=== PATIENT | male | born 1975 | race African-American/Black ===

== ENCOUNTER 2017-06-24 06:01 | Inpatient (IN) | payer SELFPAY ==
[~2017-06-24] VITALS: Ht 167.6 cm; Wt 111.1 kg
[2017-06-24 07:39] LABS: HEMATOCRIT. 47.3 % (42.0-52.0); MEAN CORPUSCULAR HEMOGLOBIN 27.1 pg (28.0-32.0); PLATELET 158 x1000/uL (130-400); RED BLOOD CELL COUNT 5.91 mill/uL (4.7-6.1); RED CELL DISTRIBUTION WIDTH 17.1 % (11.6-14.6)
[2017-06-24 07:48] LABS: INR 1.1
[2017-06-24 07:56] LABS: CARBON DIOXIDE 22 mEq/L (21-32); CHLORIDE 108 mEq/L (98-107); TROPONIN I 0.04 ng/mL (0.00-0.04)
[2017-06-24] MEDS ORDERED: ACETAMINOPHEN 500MG TABLET PO ONE (08:30)
[2017-06-24 08:53] LABS: PLATELET ESTIMATE NORMAL
[2017-06-24] MEDS ORDERED: MORPHINE SULFATE 4 MG/ML CPJ (NOT FOR IM USE) IV SCH (12:00)
[2017-06-24] MEDS ORDERED: BUPR300T52 PO (13:51)
[2017-06-24] MEDS ORDERED: OLAN20TA16 PO (13:53)
[2017-06-24] MEDS ORDERED: BUSP30TA2 PO (13:53)
[2017-06-24 14:12] VITALS: BP 133/79
[2017-06-24] MEDS ORDERED: MAGNESIUM/ALUMINUM HYDROXIDE/SIMETHICONE 30ML UDC PO PRN (14:30)
[2017-06-24] MEDS ORDERED: DIPHENHYDRAMINE 50MG/ML VIAL IV PRN (14:30)
[2017-06-24] MEDS ORDERED: ACETAMINOPHEN 325MG TABLET PO PRN (14:30)
[2017-06-24] MEDS ORDERED: CLONIDINE 0.1MG TABLET PO PRN (14:30)
[2017-06-24] MEDS ORDERED: ONDANSETRON HCL 4MG/2ML VIAL IV PRN (14:30)
[2017-06-24] MEDS ORDERED: MORPHINE SULFATE 4 MG/ML CPJ (NOT FOR IM USE) IV PRN (14:30)
[2017-06-24] MEDS ORDERED: IPRATROPIUM/ALBUTEROL 0.5-3(2.5)MG/3ML NEB INH PRN (14:30)
[2017-06-24] MEDS ORDERED: SODIUM CHLORIDE 0.9% 10ML VIAL ONE (14:37)
[2017-06-24] MEDS ORDERED: IOHEXOL-350 100 ML BOTTLE ONE (14:37)
[2017-06-24 15:42] LABS: T4 FREE 0.99 ng/dL (0.76-1.46)
[2017-06-24] MEDS: BUPROPION HCL 150MG TABLET XL 24HR PO SCH (15:44)
[2017-06-24 16:00] VITALS: BP 133/79
[2017-06-24 17:24] LABS: BG CARBOXYHEMOGLOBIN 1.5 % (0.5-1.5); BG DEOXYHEMOGLOBIN 6.3 % (0.0-5.0); BG FRACTION INSPIRED OXYGEN 21; BG HCO3 ACT 21.1 mmol/L (22.0-26.0); BG METHEMOGLOBIN 0.4 % (0.0-1.5); BG OXYGEN SATURATION 93.6 % (92.0-98.5); BG OXYHEMOGLOBIN 91.8 % (94.0-97.0); BG PCO2 32.1 mmHg (35.0-45.0); BG PH 7.435 (7.350-7.450); BG PO2 66.6 mmHg (75.0-100.0); BG SAMPLE SITE RIGHT RADIAL; BG TOTAL HEMOGLOBIN 17.4 g/dL (12.0-18.0); BG VENT MODE ROOM AIR
[2017-06-24 20:00] VITALS: BP 125/90
[2017-06-24 20:24] LABS: *AMPHETAMINES SCREEN URINE NEGATIVE (NEGATIVE); *BARBITURATES SCREEN URINE NEGATIVE (NEGATIVE); *BENZODIAZEPINES SCREEN URINE NEGATIVE (NEGATIVE); *COCAINE SCREEN URINE NEGATIVE (NEGATIVE); CANNABINOID URINE SCREEN NEGATIVE (NEGATIVE); METHADONE URINE SCREEN NEGATIVE (NEGATIVE); OPIATES URINE SCREEN PRESUMTIVE POSITIVE (NEGATIVE); PHENCYCLIDINE URINE SCREEN NEGATIVE (NEGATIVE)
[2017-06-24] MEDS: BUSPIRONE HCL 5MG TABLET PO SCH (20:44)
[2017-06-24] MEDS: OLANZAPINE 10MG TABLET ODT PO SCH (20:45)
[2017-06-24] MEDS: SODIUM CHLORIDE 0.9% INJ 3ML FLUSH IVF SCH (20:46)
[2017-06-24] MEDS: ENOXAPARIN 30MG/0.3ML SYR SUBCUT SCH (20:46)
[2017-06-25] VITALS: BP 128/88
[2017-06-25] MEDS ORDERED: IBUPROFEN 600MG TABLET PO PRN (02:00)
[2017-06-25 04:00] VITALS: BP 117/55
[2017-06-25] MEDS: MORPHINE SULFATE 4 MG/ML CPJ (NOT FOR IM USE) IV PRN ×4 (04:06→23:46)
[2017-06-25] MEDS: SODIUM CHLORIDE 0.9% INJ 3ML FLUSH IVF SCH ×3 (05:35→21:53)
[2017-06-25] MEDS ORDERED: FUROSEMIDE 40MG/4ML VIAL IVP NR (07:00)
[2017-06-25 07:41] LABS: TROPONIN I 0.02 ng/mL (0.00-0.04)
[2017-06-25 07:56] VITALS: BP 136/97
[2017-06-25] MEDS: OLANZAPINE 10MG TABLET ODT PO SCH ×2 (09:00→21:00)
[2017-06-25] MEDS: BUSPIRONE HCL 5MG TABLET PO SCH ×2 (09:00→21:42)
[2017-06-25] MEDS: BUPROPION HCL 150MG TABLET XL 24HR PO SCH (09:09)
[2017-06-25] MEDS: ENOXAPARIN 30MG/0.3ML SYR SUBCUT SCH ×2 (09:09→21:42)
[2017-06-25] MEDS: CEFTRIAXONE 1 G PREMIX 50 ML IV SCH (09:09)
[2017-06-25 12:00] VITALS: BP 100/63
[2017-06-25] MEDS: AZITHROMYCIN 500 MG in DEXT 5% WATER 250 ML IV SCH (12:38)
[2017-06-25 15:51] VITALS: BP 101/68
[2017-06-25 20:00] VITALS: BP 118/78
[2017-06-26] VITALS: BP 117/79
[2017-06-26 04:00] VITALS: BP 113/77
[2017-06-26] MEDS: SODIUM CHLORIDE 0.9% INJ 3ML FLUSH IVF SCH ×3 (05:47→21:02)
[2017-06-26] MEDS: MORPHINE SULFATE 4 MG/ML CPJ (NOT FOR IM USE) IV PRN (06:45)
[2017-06-26 08:00] VITALS: BP 104/66
[2017-06-26] MEDS: BUSPIRONE HCL 5MG TABLET PO SCH ×3 (08:16→21:02)
[2017-06-26] MEDS: BUPROPION HCL 150MG TABLET XL 24HR PO SCH (08:16)
[2017-06-26] MEDS: ENOXAPARIN 30MG/0.3ML SYR SUBCUT SCH ×2 (08:17→21:02)
[2017-06-26] MEDS: CEFTRIAXONE 1 G PREMIX 50 ML IV SCH (08:19)
[2017-06-26] MEDS ORDERED: ATENOLOL 50 MG TABLET PO SCH (09:00)
[2017-06-26] MEDS: AZITHROMYCIN 500 MG in DEXT 5% WATER 250 ML IV SCH (09:24)
[2017-06-26 12:00] VITALS: BP 121/82
[2017-06-26] MEDS: ATENOLOL 25MG TABLET PO SCH (12:08)
[2017-06-26] MEDS: TRAMADOL 50MG TABLET PO PRN ×2 (13:03→19:55)
[2017-06-26 16:00] VITALS: BP 92/54
[2017-06-26 20:03] VITALS: BP 100/59
[2017-06-26] MEDS: OLANZAPINE 10MG TABLET ODT PO SCH (21:02)
[2017-06-27] VITALS: BP 112/89
[2017-06-27 04:00] VITALS: BP 112/80
[2017-06-27] MEDS: SODIUM CHLORIDE 0.9% INJ 3ML FLUSH IVF SCH ×3 (05:00→20:41)
[2017-06-27] MEDS: ATENOLOL 25MG TABLET PO SCH (09:00)
[2017-06-27] MEDS: BUSPIRONE HCL 5MG TABLET PO SCH ×2 (09:00→21:00)
[2017-06-27] MEDS ORDERED: ATENOLOL 25MG TABLET PO SCH (09:00)
[2017-06-27] MEDS: CEFTRIAXONE 1 G PREMIX 50 ML IV SCH (09:27)
[2017-06-27] MEDS: AZITHROMYCIN 500 MG in DEXT 5% WATER 250 ML IV SCH (09:27)
[2017-06-27] MEDS: BUPROPION HCL 150MG TABLET XL 24HR PO SCH (09:27)
[2017-06-27] MEDS: ENOXAPARIN 30MG/0.3ML SYR SUBCUT SCH ×2 (09:29→20:39)
[2017-06-27] MEDS: TRAMADOL 50MG TABLET PO PRN ×2 (09:42→18:39)
[2017-06-27 12:00] VITALS: BP 101/76
[2017-06-27] MEDS: SPIRONOLACTONE 25MG TABLET PO SCH (13:26)
[2017-06-27] MEDS: FUROSEMIDE 40MG/4ML VIAL IVP SCH (13:26)
[2017-06-27] MEDS ORDERED: CARVEDILOL 3.125 MG TABLET PO NR (13:56)
[2017-06-27 16:00] VITALS: BP 103/79
[2017-06-27 20:00] VITALS: BP 100/58
[2017-06-27] MEDS: OLANZAPINE 10MG TABLET ODT PO SCH (20:39)
[2017-06-27] MEDS: ATORVASTATIN CALCIUM 40MG TABLET PO SCH (20:41)
[2017-06-27] MEDS: CARVEDILOL 3.125 MG TABLET PO SCH (21:00)
[2017-06-28] VITALS: BP 126/63
[2017-06-28] MEDS: TRAMADOL 50MG TABLET PO PRN ×3 (00:24→19:24)
[2017-06-28 04:00] VITALS: BP 105/66
[2017-06-28] MEDS: SODIUM CHLORIDE 0.9% INJ 3ML FLUSH IVF SCH ×3 (05:31→20:24)
[2017-06-28 07:28] LABS: CARBON DIOXIDE 22 mEq/L (21-32); CHLORIDE 103 mEq/L (98-107)
[2017-06-28 08:00] VITALS: BP 114/83
[2017-06-28] MEDS: SPIRONOLACTONE 25MG TABLET PO SCH (08:24)
[2017-06-28] MEDS: BUPROPION HCL 150MG TABLET XL 24HR PO SCH (08:24)
[2017-06-28] MEDS: CARVEDILOL 3.125 MG TABLET PO SCH (08:25)
[2017-06-28] MEDS: FUROSEMIDE 40MG/4ML VIAL IVP SCH (08:25)
[2017-06-28] MEDS: ENOXAPARIN 30MG/0.3ML SYR SUBCUT SCH ×2 (08:26→20:24)
[2017-06-28] MEDS: BUSPIRONE HCL 5MG TABLET PO SCH ×2 (09:36→21:00)
[2017-06-28 12:00] VITALS: BP 112/78
[2017-06-28] MEDS: LISINOPRIL 2.5MG TABLET PO SCH (15:26)
[2017-06-28 15:27] VITALS: BP 121/88
[2017-06-28 20:00] VITALS: BP 106/66
[2017-06-28] MEDS: ATORVASTATIN CALCIUM 40MG TABLET PO SCH (20:22)
[2017-06-28] MEDS: CARVEDILOL 6.25 MG TABLET PO SCH (20:23)
[2017-06-28] MEDS: OLANZAPINE 10MG TABLET ODT PO SCH (20:23)
[2017-06-29] VITALS: BP 103/65
[2017-06-29 04:00] VITALS: BP 102/69
[2017-06-29] MEDS: SODIUM CHLORIDE 0.9% INJ 3ML FLUSH IVF SCH (05:50)
[2017-06-29] MEDS: TRAMADOL 50MG TABLET PO PRN (05:51)
[2017-06-29 06:58] LABS: HEMATOCRIT 49.6 % (42.0-52.0); HEMOGLOBIN 16.6 g/dL (14.0-18.0); MEAN CORPUSCULAR HEMOGLOBIN 27.3 pg (28.0-32.0); MEAN CORPUSCULAR VOLUME 81.5 fL (80.0-94.0); PLATELET 191 x1000/uL (130-400); RED BLOOD CELL COUNT 6.09 mill/uL (4.7-6.1); RED CELL DISTRIBUTION WIDTH 17.3 % (11.6-14.6)
[2017-06-29 07:40] VITALS: BP 120/83
[2017-06-29] MEDS: FUROSEMIDE 40MG/4ML VIAL IVP SCH (08:46)
[2017-06-29] MEDS: ENOXAPARIN 30MG/0.3ML SYR SUBCUT SCH (08:47)
[2017-06-29] MEDS: LISINOPRIL 2.5MG TABLET PO SCH (08:47)
[2017-06-29] MEDS: BUPROPION HCL 150MG TABLET XL 24HR PO SCH (08:47)
[2017-06-29] MEDS: SPIRONOLACTONE 25MG TABLET PO SCH (08:47)
[2017-06-29] MEDS: BUSPIRONE HCL 5MG TABLET PO SCH (08:48)
[2017-06-29] MEDS: CARVEDILOL 6.25 MG TABLET PO SCH (08:48)
[2017-06-29] MEDS ORDERED: LORAZEPAM 2MG/ML CPJ IV NR (10:45)
[2017-06-29 11:59] VITALS: BP 121/79
[2017-06-29 13:29] VITALS: BP 121/79
[2017-06-29] MEDS ORDERED: CARVEDILOL 6.25 MG TABLET PO SCH (21:00)
[2017-06-29] MEDS ORDERED: CARVEDILOL 25MG TABLET PO SCH (21:00)
[2017-06-30] MEDS ORDERED: LISINOPRIL 2.5MG TABLET PO SCH (09:00)
== END 2017-06-29 14:40 | disposition home or self-care (01) | DRG 194 ==
LOC: ER 06:01 → 8WST 09:38 → ENRESERV 11:35
PROVIDERS: ADMIT Internal Medicine; ATTEND Internal Medicine
DX: I11.0 Hypertensive heart disease with heart failure (principal); E78.5 Hyperlipidemia, unspecified; E66.9 Obesity, unspecified; F17.210 Nicotine dependence, cigarettes, uncomplicated; I50.9 Heart failure, unspecified; E78.00 Pure hypercholesterolemia, unspecified; F99 Mental disorder, not otherwise specified; Z79.899 Other long term (current) drug therapy; Z82.49 Family history of ischemic heart disease and other diseases of the circulatory system; Z91.14 Patient's other noncompliance with medication regimen; Z68.39 Body mass index [BMI] 39.0-39.9, adult; Z71.6 Tobacco abuse counseling
CPT/HCPCS: 36415; 36600; 71010; 71275; 80048; 80053; 80061; 80305; 82375; 82805; 83735; 83880; 84439; 84443; 84484; 85025; 85027; 85610; 93005; 93306; 93970; 99285; A4216; J0456; J0696; J1200; J1650; J1940; J2270; J2405; J7040; J7060; Q9967

== ENCOUNTER 2017-12-11 06:41 | Inpatient (IN) | payer SELFPAY ==
[~2017-12-11] VITALS: Ht 170.2 cm; Wt 109.5 kg
[~2017-12-11 06:41] MED LIST: BUPR300T52 PO; BUSP30TA2 PO; OLAN20TA16 PO
[2017-12-11 08:23] LABS: BASOPHILS % 0.7 % (0.0-2.0); EOSINOPHILS % 0.7 % (0.0-5.0); HEMOGLOBIN. 16.6 g/dL (14.0-18.0); LYMPHOCYTES % 14.8 % (20.0-50.0); MEAN CORPUSCULAR VOLUME 82.6 fL (80.0-94.0); MEAN PLATELET VOLUME 9.7 fl (7.4-10.4); MONOCYTES % 7.9 % (2.0-8.0); NEUTROPHILS % 75.9 % (40.0-76.0); RED BLOOD CELL COUNT 5.93 mill/uL (4.7-6.1); RED CELL DISTRIBUTION WIDTH 15.5 % (11.6-14.6)
[2017-12-11 08:31] LABS: CHLORIDE 111 mEq/L (98-107)
[2017-12-11 08:52] LABS: INR 1.1; PROTHROMBIN TIME 11.1 sec (9.4-11.6)
[2017-12-11 09:03] LABS: PLATELET 168 x1000/uL (130-400)
[2017-12-11] MEDS ORDERED: ASPIRIN 81MG TABLET PO ONE (11:00)
[2017-12-11] MEDS: ALBUTEROL (0.083%) 2.5MG/3ML NEB HHN SCH ×3 (11:00→13:06)
[2017-12-11] MEDS ORDERED: PREDNISONE 20MG TABLET PO STA (11:50)
[2017-12-11] MEDS ORDERED: IPRATROPIUM BROMIDE (0.02%) 0.5MG/2.5ML NEB HHN STA (11:50)
[2017-12-11] MEDS ORDERED: CEFTRIAXONE 1 G PREMIX 50 ML IV SCH (12:00)
[2017-12-11] MEDS ORDERED: AZITHROMYCIN 500 MG in SODIUM CHLORIDE 0.9% 250 ML IV ONE (12:00)
[2017-12-11] MEDS ORDERED: SODIUM CHLORIDE 0.9% 1,000 ML IV ONE (13:37)
[2017-12-11] MEDS ORDERED: ONDANSETRON HCL 4MG/2ML VIAL IV PRN (13:45)
[2017-12-11] MEDS ORDERED: IPRATROPIUM/ALBUTEROL 0.5-3(2.5)MG/3ML NEB INH PRN (13:45)
[2017-12-11] MEDS ORDERED: DOCUSATE SODIUM 100MG CAPSULE PO PRN (13:45)
[2017-12-11] MEDS ORDERED: GUAIFENESIN 200MG/10ML SUGAR FREE UDC PO PRN (13:45)
[2017-12-11] MEDS ORDERED: LORAZEPAM 0.5MG TABLET PO PRN (13:45)
[2017-12-11] MEDS ORDERED: MAGNESIUM/ALUMINUM HYDROXIDE/SIMETHICONE 30ML UDC PO PRN (13:45)
[2017-12-11] MEDS ORDERED: ACETAMINOPHEN 325MG TABLET PO PRN (13:45)
[2017-12-11] MEDS ORDERED: NA PHOS,M-B/NA PHOS,DI-BA ENEMA 118ML PR PRN (13:45)
[2017-12-11] MEDS ORDERED: CLONIDINE 0.1MG TABLET PO PRN (13:45)
[2017-12-11] MEDS ORDERED: MORPHINE SULFATE 4 MG/ML CPJ (NOT FOR IM USE) IV ONE (14:00)
[2017-12-11] MEDS ORDERED: IOHEXOL-350 100 ML BOTTLE ONE (15:31)
[2017-12-11 15:59] LABS: CHLORIDE 112 mEq/L (98-107)
[2017-12-11] MEDS ORDERED: ENOXAPARIN 40MG/0.4ML SYR SUBCUT ONE (17:45)
[2017-12-11] MEDS ORDERED: ENOXAPARIN 40MG/0.4ML SYR SUBCUT SCH (18:00)
[2017-12-11] MEDS: METHYLPREDNISOLONE SOD SUCC 125 MG/2 ML VIAL IV SCH (18:00)
[2017-12-11 19:03] LABS: BG BASE EXCESS -3.3 mmol/L (-2.0-2.0); BG CARBOXYHEMOGLOBIN 0.7 % (0.5-1.5); BG DEOXYHEMOGLOBIN 5.1 % (0.0-5.0); BG FRACTION INSPIRED OXYGEN 28; BG METHEMOGLOBIN 0.1 % (0.0-1.5); BG OXYGEN SATURATION 94.9 % (92.0-98.5); BG OXYHEMOGLOBIN 94.1 % (94.0-97.0); BG PCO2 32.1 mmHg (35.0-45.0); BG PH 7.413 (7.350-7.450); BG PO2 75.6 mmHg (75.0-100.0); BG SAMPLE SITE RIGHT BRACHIAL; BG TOTAL HEMOGLOBIN 16.9 g/dL (12.0-18.0); BG VENT MODE NASAL CANNULA
[2017-12-11] MEDS: FUROSEMIDE 40MG/4ML VIAL IVP SCH (19:48)
[2017-12-11] MEDS: ENOXAPARIN 30MG/0.3ML SYR SUBCUT SCH (19:49)
[2017-12-11 20:00] VITALS: BP 116/76
[2017-12-11] MEDS ORDERED: LEVOFLOXACIN 500MG PREMIX 100 ML IV SCH (20:00)
[2017-12-11] MEDS: MORPHINE SULFATE 4 MG/ML CPJ (NOT FOR IM USE) IV PRN (20:55)
[2017-12-11] MEDS: LEVOFLOXACIN 500MG PREMIX 100 ML IV SCH (21:48)
[2017-12-11] MEDS: CARVEDILOL 3.125 MG TABLET PO SCH (22:39)
[2017-12-12] VITALS: BP 119/75
[2017-12-12] MEDS: METHYLPREDNISOLONE SOD SUCC 125 MG/2 ML VIAL IV SCH ×3 (02:00→18:53)
[2017-12-12] MEDS: MORPHINE SULFATE 4 MG/ML CPJ (NOT FOR IM USE) IV PRN ×4 (02:05→20:24)
[2017-12-12 04:00] VITALS: BP 115/69
[2017-12-12] MEDS: FUROSEMIDE 40MG/4ML VIAL IVP SCH ×2 (07:01→17:21)
[2017-12-12] MEDS: ENOXAPARIN 30MG/0.3ML SYR SUBCUT SCH ×2 (07:02→18:54)
[2017-12-12 07:07] LABS: HEMATOCRIT. 47.6 % (42.0-52.0); HEMOGLOBIN. 16.2 g/dL (14.0-18.0); MEAN CORPUSCULAR HEMOGLOBIN 28.2 pg (28.0-32.0); MEAN CORPUSCULAR VOLUME 82.7 fL (80.0-94.0); RED BLOOD CELL COUNT 5.75 mill/uL (4.7-6.1); RED CELL DISTRIBUTION WIDTH 15.9 % (11.6-14.6)
[2017-12-12 07:26] LABS: CHLORIDE 105 mEq/L (98-107)
[2017-12-12 07:37] LABS: HDL CHOLESTEROL 44 mg/dL (40-59); LDL CHOLESTEROL 94 mg/dL (5-100); T4 FREE 0.88 ng/dL (0.76-1.46)
[2017-12-12 08:00] VITALS: BP 124/71
[2017-12-12] MEDS: BUPROPION HCL 150MG TABLET XL 24HR PO SCH (08:55)
[2017-12-12] MEDS: ASPIRIN 81MG EC TABLET PO SCH (08:55)
[2017-12-12] MEDS: CARVEDILOL 3.125 MG TABLET PO SCH ×2 (08:55→20:25)
[2017-12-12] MEDS: BUSPIRONE HCL 10MG TABLET PO SCH ×2 (08:55→17:10)
[2017-12-12] MEDS ORDERED: MEDICATION NOT ON FORMULARY EA (Bupropion Hcl (Wellbutrin Xl) 1 TAB) PO SCH (09:00)
[2017-12-12] MEDS ORDERED: BUSPIRONE HCL PO SCH (09:00)
[2017-12-12 10:16] LABS: *AMPHETAMINES SCREEN URINE NEGATIVE (NEGATIVE); *BARBITURATES SCREEN URINE NEGATIVE (NEGATIVE); *BENZODIAZEPINES SCREEN URINE NEGATIVE (NEGATIVE); *COCAINE SCREEN URINE NEGATIVE (NEGATIVE); CANNABINOID URINE SCREEN NEGATIVE (NEGATIVE); METHADONE URINE SCREEN NEGATIVE (NEGATIVE); OPIATES URINE SCREEN NEGATIVE (NEGATIVE); PHENCYCLIDINE URINE SCREEN NEGATIVE (NEGATIVE)
[2017-12-12] MEDS: HYDROCODONE/ACETAMINOPHEN 5/325MG TABLET PO PRN ×2 (11:03→15:56)
[2017-12-12 11:23] LABS: MEAN PLATELET VOLUME 10.6 fl (7.4-10.4); PLATELET 181 x1000/uL (130-400)
[2017-12-12 12:00] VITALS: BP 113/64
[2017-12-12] MEDS ORDERED: PNEUMOCOCCAL 23-VAL P-SAC VAC 0.5 ML IM ONE (12:00)
[2017-12-12] MEDS ORDERED: AZITHROMYCIN 500 MG in SODIUM CHLORIDE 0.9% 250 ML IV SCH (12:00)
[2017-12-12] MEDS ORDERED: CEFTRIAXONE 1 G PREMIX 50 ML IV SCH (13:00)
[2017-12-12 16:00] VITALS: BP 125/85
[2017-12-12] MEDS ORDERED: OLANZAPINE 10MG TABLET PO SCH (17:00)
[2017-12-12] MEDS ORDERED: MEDICATION NOT ON FORMULARY EA (Olanzapine 1 TAB) PO SCH (17:00)
[2017-12-12] MEDS ORDERED: FLUO20CA33 PO (17:45)
[2017-12-12 20:00] VITALS: BP 103/71
[2017-12-12] MEDS: LEVOFLOXACIN 500MG PREMIX 100 ML IV SCH (20:25)
[2017-12-13] VITALS: BP 114/71
[2017-12-13] MEDS: METHYLPREDNISOLONE SOD SUCC 125 MG/2 ML VIAL IV SCH ×2 (02:18→10:26)
[2017-12-13 04:00] VITALS: BP 122/65
[2017-12-13] MEDS: ENOXAPARIN 30MG/0.3ML SYR SUBCUT SCH (06:00)
[2017-12-13] MEDS: FUROSEMIDE 40MG/4ML VIAL IVP SCH (06:01)
[2017-12-13] MEDS: MORPHINE SULFATE 4 MG/ML CPJ (NOT FOR IM USE) IV PRN (07:46)
[2017-12-13 07:59] LABS: HEMATOCRIT. 52.2 % (42.0-52.0); HEMOGLOBIN. 17.3 g/dL (14.0-18.0); MEAN CORPUSCULAR HEMOGLOBIN 27.5 pg (28.0-32.0); MEAN PLATELET VOLUME 10.6 fl (7.4-10.4); PLATELET 204 x1000/uL (130-400); RED BLOOD CELL COUNT 6.29 mill/uL (4.7-6.1)
[2017-12-13 08:00] VITALS: BP 116/78
[2017-12-13 08:20] LABS: CHLORIDE 103 mEq/L (98-107)
[2017-12-13] MEDS: BUSPIRONE HCL 10MG TABLET PO SCH (08:41)
[2017-12-13] MEDS: CARVEDILOL 3.125 MG TABLET PO SCH (08:41)
[2017-12-13] MEDS: ASPIRIN 81MG EC TABLET PO SCH (08:41)
[2017-12-13] MEDS: BUPROPION HCL 150MG TABLET XL 24HR PO SCH (08:41)
[2017-12-13 10:45] VITALS: BP 116/78
[2017-12-13 13:01] LABS: PLATELET ESTIMATE NORMAL
== END 2017-12-13 11:35 | disposition home or self-care (01) | DRG 133 ==
LOC: ER 06:41 → 7WST 13:43 → ENRESERV 16:17
PROVIDERS: ADMIT Internal Medicine; ATTEND Internal Medicine
DX: J96.00 Acute respiratory failure, unspecified whether with hypoxia or hypercapnia (principal); I50.23 Acute on chronic systolic (congestive) heart failure; J18.9 Pneumonia, unspecified organism; I42.9 Cardiomyopathy, unspecified; R65.10 Systemic inflammatory response syndrome (SIRS) of non-infectious origin without acute organ dysfunction; I11.0 Hypertensive heart disease with heart failure; J44.0 Chronic obstructive pulmonary disease with (acute) lower respiratory infection; E87.5 Hyperkalemia; D64.9 Anemia, unspecified; F32.9 Major depressive disorder, single episode, unspecified; F12.90 Cannabis use, unspecified, uncomplicated; F17.210 Nicotine dependence, cigarettes, uncomplicated; I34.0 Nonrheumatic mitral (valve) insufficiency; Z79.899 Other long term (current) drug therapy; Z82.3 Family history of stroke
CPT/HCPCS: 36415; 36600; 71045; 71275; 80048; 80053; 80061; 80305; 82375; 82805; 83605; 83735; 83880; 84439; 84443; 84484; 85025; 85610; 87804; 93005; 93306; 94640; 96361; 96365; 96367; 96375; 99285; J0456; J0696; J1650; J1940; J1956; J2270; J2930; J7040; J7050; J7060; J7512; J7611; Q9967

== ENCOUNTER 2018-01-01 22:29 | Inpatient (IN) | payer SELFPAY ==
[~2018-01-01] VITALS: Ht 172.7 cm; Wt 107.5 kg
[~2018-01-01 22:29] MED LIST changes: +FLUO20CA33 PO
[2018-01-01] MEDS ORDERED: ASPIRIN 81MG TABLET PO ONE (23:45)
[2018-01-02 00:13] LABS: BASOPHILS % 0.6 % (0.0-2.0); EOSINOPHILS % 0.7 % (0.0-5.0); HEMATOCRIT. 45.5 % (42.0-52.0); HEMOGLOBIN. 15.5 g/dL (14.0-18.0); LYMPHOCYTES % 14.6 % (20.0-50.0); MEAN CORPUSCULAR VOLUME 81.9 fL (80.0-94.0); MONOCYTES % 6.1 % (2.0-8.0); RED BLOOD CELL COUNT 5.55 mill/uL (4.7-6.1); RED CELL DISTRIBUTION WIDTH 16.2 % (11.6-14.6)
[2018-01-02 00:20] LABS: CHLORIDE 109 mEq/L (98-107)
[2018-01-02 00:23] LABS: INR 1.1; PARTIAL THROMBOPLASTIN TIME 25.9 sec (23.4-31.0); PROTHROMBIN TIME 11.7 sec (9.4-11.6)
[2018-01-02 00:33] LABS: MEAN PLATELET VOLUME 9.8 fl (7.4-10.4); PLATELET 174 x1000/uL (130-400)
[2018-01-02] MEDS ORDERED: KETOROLAC 30MG/ML VIAL IV ONE (00:45)
[2018-01-02] MEDS ORDERED: FUROSEMIDE 40MG/4ML VIAL IVP NR (02:15)
[2018-01-02] MEDS ORDERED: MORPHINE SULFATE 4 MG/ML CPJ (NOT FOR IM USE) IV ONE (02:15)
[2018-01-02 02:19] LABS: CLARITY URINE CLEAR (CLEAR); COLOR URINE YELLOW (YELLOW); KETONES URINE NEGATIVE (NEGATIVE); LEUKOCYTE ESTERASE URINE NEGATIVE (NEGATIVE); NITRITE URINE NEGATIVE (NEGATIVE); OCCULT BLOOD URINE NEGATIVE (NEGATIVE); PROTEIN URINE TRACE (NEGATIVE); UROBILINOGEN URINE 0.2 E.U./dL (0.2-1.0)
[2018-01-02 06:18] VITALS: BP 119/79
[2018-01-02] MEDS ORDERED: IPRATROPIUM/ALBUTEROL 0.5-3(2.5)MG/3ML NEB INH PRN (07:30)
[2018-01-02] MEDS ORDERED: GUAIFENESIN 200MG/10ML SUGAR FREE UDC PO PRN (07:30)
[2018-01-02] MEDS ORDERED: ENOXAPARIN 40MG/0.4ML SYR SUBCUT SCH (07:30)
[2018-01-02] MEDS ORDERED: ONDANSETRON HCL 4MG/2ML VIAL IV PRN (07:30)
[2018-01-02] MEDS ORDERED: CLONIDINE 0.1MG TABLET PO PRN (07:30)
[2018-01-02] MEDS ORDERED: MAGNESIUM/ALUMINUM HYDROXIDE/SIMETHICONE 30ML UDC PO PRN (07:30)
[2018-01-02] MEDS ORDERED: LORAZEPAM 0.5MG TABLET PO PRN (07:30)
[2018-01-02] MEDS ORDERED: ACETAMINOPHEN 325MG TABLET PO PRN (07:30)
[2018-01-02] MEDS ORDERED: NITROGLYCERIN 0.4MG TABLET SL SL PRN (07:30)
[2018-01-02 08:00] VITALS: BP 114/83
[2018-01-02 08:52] VITALS: BP 114/83
[2018-01-02] MEDS ORDERED: NA PHOS,M-B/NA PHOS,DI-BA ENEMA 118ML PR PRN (09:00)
[2018-01-02] MEDS ORDERED: DOCUSATE SODIUM 100MG CAPSULE PO PRN (09:00)
[2018-01-02] MEDS: ENOXAPARIN 30MG/0.3ML SYR SUBCUT SCH ×2 (09:26→21:52)
[2018-01-02] MEDS: ASPIRIN 325MG EC TABLET PO SCH (09:26)
[2018-01-02] MEDS: FUROSEMIDE 40MG/4ML VIAL IV SCH ×2 (09:27→21:47)
[2018-01-02] MEDS: KETOROLAC 15MG/ML VIAL IV PRN ×3 (09:28→22:31)
[2018-01-02 11:23] LABS: *AMPHETAMINES SCREEN URINE NEGATIVE (NEGATIVE); *BARBITURATES SCREEN URINE NEGATIVE (NEGATIVE); *BENZODIAZEPINES SCREEN URINE NEGATIVE (NEGATIVE); *COCAINE SCREEN URINE NEGATIVE (NEGATIVE); METHADONE URINE SCREEN NEGATIVE (NEGATIVE); OPIATES URINE SCREEN NEGATIVE (NEGATIVE)
[2018-01-02 11:24] LABS: CANNABINOID URINE SCREEN NEGATIVE (NEGATIVE); PHENCYCLIDINE URINE SCREEN NEGATIVE (NEGATIVE)
[2018-01-02 12:00] VITALS: BP 104/63
[2018-01-02 16:00] VITALS: BP 116/68
[2018-01-02 16:10] LABS: CREATINE KINASE 326 IU/L (39-308)
[2018-01-02 16:11] LABS: CREATINE KINASE MB FRACTION 1.1 ng/mL (0.5-3.6)
[2018-01-02] MEDS: SPIRONOLACTONE 25MG TABLET PO SCH (16:34)
[2018-01-02 20:00] VITALS: BP 107/67
[2018-01-02] MEDS ORDERED: ATORVASTATIN CALCIUM 20MG TABLET PO SCH (21:00)
[2018-01-02] MEDS ORDERED: ZOLPIDEM TARTRATE 5MG TABLET PO PRN (21:00)
[2018-01-03] VITALS: BP 107/63
[2018-01-03 00:09] LABS: CREATINE KINASE 270 IU/L (39-308)
[2018-01-03 00:11] LABS: CREATINE KINASE MB FRACTION 1.1 ng/mL (0.5-3.6)
[2018-01-03 04:00] VITALS: BP 104/66
[2018-01-03] MEDS: SPIRONOLACTONE 25MG TABLET PO SCH (06:47)
[2018-01-03 08:00] VITALS: BP 103/53
[2018-01-03] MEDS: FUROSEMIDE 40MG/4ML VIAL IV SCH (08:50)
[2018-01-03] MEDS: ASPIRIN 325MG EC TABLET PO SCH (08:50)
[2018-01-03] MEDS: ENOXAPARIN 30MG/0.3ML SYR SUBCUT SCH (08:50)
[2018-01-03 12:00] VITALS: BP 129/84
[2018-01-03 12:10] VITALS: BP 129/84
== END 2018-01-03 14:10 | disposition home or self-care (01) | DRG 194 ==
LOC: ER 22:29 → 6WST 01-02 03:18 → EDBEDREQTM 01-02 03:20 → EDBEDREQ 01-02 03:20 → ENRESERV 01-02 04:34
PROVIDERS: ADMIT Internal Medicine; ATTEND Internal Medicine
DX: I11.0 Hypertensive heart disease with heart failure (principal); E66.9 Obesity, unspecified; I50.40 Unspecified combined systolic (congestive) and diastolic (congestive) heart failure; Z87.891 Personal history of nicotine dependence; Z91.14 Patient's other noncompliance with medication regimen; Z68.36 Body mass index [BMI] 36.0-36.9, adult
CPT/HCPCS: 36415; 71045; 80053; 80061; 80305; 81003; 82550; 82553; 83036; 83605; 83880; 84484; 85025; 85610; 85730; 87040; 87086; 87804; 93005; 96374; 96375; 99285; J1650; J1885; J1940; J2270

== ENCOUNTER 2018-07-05 15:13 | Inpatient (IN) | payer SELFPAY ==
[~2018-07-05] VITALS: Ht 170.2 cm; Wt 113.4 kg
[2018-07-05] MEDS ORDERED: FUROSEMIDE 40MG/4ML VIAL IV ONE (16:45)
[2018-07-05] MEDS ORDERED: MORPHINE SULFATE 4 MG/ML CPJ (NOT FOR IM USE) IV STA (16:52)
[2018-07-05] MEDS ORDERED: ONDANSETRON HCL 4MG/2ML INJ IV STA (16:52)
[2018-07-05 17:27] LABS: HEMATOCRIT. 52.1 % (42.0-52.0); HEMOGLOBIN. 17.5 g/dL (14.0-18.0); MEAN CORPUSCULAR HEMOGLOBIN 29.2 pg (28.0-32.0); RED BLOOD CELL COUNT 5.99 mill/uL (4.7-6.1); RED CELL DISTRIBUTION WIDTH 14.3 % (11.6-14.6)
[2018-07-05] MEDS ORDERED: ACETAMINOPHEN 325MG TABLET PO NR (17:45)
[2018-07-05 17:46] LABS: MEAN PLATELET VOLUME 10.7 fl (7.4-10.4); PLATELET 193 x1000/uL (130-400)
[2018-07-05 17:48] LABS: PLATELET ESTIMATE NORMAL
[2018-07-05 17:55] LABS: CHLORIDE 103 mEq/L (98-107)
[2018-07-05 22:15] VITALS: BP 138/87
[2018-07-05 22:20] VITALS: BP 138/87
[2018-07-05] MEDS ORDERED: BUSPIRONE HCL PO SCH (22:45)
[2018-07-05] MEDS ORDERED: MEDICATION NOT ON FORMULARY EA (Losartan Potassium (Cozaar) 25 MG) PO SCH (22:45)
[2018-07-05] MEDS ORDERED: SPIR25TA PO (22:48)
[2018-07-05] MEDS ORDERED: ATOR20TA PO (22:48)
[2018-07-05] MEDS ORDERED: COR25 PO (22:48)
[2018-07-05] MEDS ORDERED: LOSA25TA3 PO (22:48)
[2018-07-05] MEDS ORDERED: FURO-151 PO (22:48)
[2018-07-05] MEDS ORDERED: CLONIDINE 0.1MG TABLET PO PRN (23:45)
[2018-07-05] MEDS ORDERED: IPRATROPIUM/ALBUTEROL 0.5-3(2.5)MG/3ML NEB HHN PRN (23:45)
[2018-07-05] MEDS ORDERED: HYDROCODONE/ACETAMINOPHEN 5/325MG TABLET PO PRN (23:45)
[2018-07-05] MEDS ORDERED: DOCUSATE SODIUM 100MG CAPSULE PO PRN (23:45)
[2018-07-05] MEDS ORDERED: ACETAMINOPHEN 325MG TABLET PO PRN (23:45)
[2018-07-05] MEDS ORDERED: GUAIFENESIN 200MG/10ML SUGAR FREE UDC PO PRN ×2 (23:45)
[2018-07-05] MEDS ORDERED: ONDANSETRON HCL 4MG/2ML INJ IV PRN (23:45)
[2018-07-06] VITALS (7 sets, daily range): BP systolic 84–128; BP diastolic 53–83
[2018-07-06] MEDS ORDERED: OLANZAPINE 10MG TABLET PO SCH
[2018-07-06] MEDS: BUSPIRONE HCL 10MG TABLET PO SCH ×3 (00:05→21:40)
[2018-07-06] MEDS: HYDROCODONE/ACETAMINOPHEN 5/325MG TABLET PO PRN (00:08)
[2018-07-06] MEDS: IPRATROPIUM/ALBUTEROL 0.5-3(2.5)MG/3ML NEB HHN SCH ×3 (02:03→20:04)
[2018-07-06 07:33] LABS: HEMATOCRIT. 50.7 % (42.0-52.0); MEAN CORPUSCULAR HEMOGLOBIN 29.1 pg (28.0-32.0); RED BLOOD CELL COUNT 5.83 mill/uL (4.7-6.1); RED CELL DISTRIBUTION WIDTH 14.3 % (11.6-14.6)
[2018-07-06 07:52] LABS: CHLORIDE 102 mEq/L (98-107)
[2018-07-06 07:59] LABS: LDL CHOLESTEROL 137 mg/dL (5-100)
[2018-07-06 08:00] LABS: CREATINE KINASE 178 IU/L (39-308); HDL CHOLESTEROL 35 mg/dL (40-59)
[2018-07-06 08:03] LABS: CREATINE KINASE MB FRACTION < 1.0 ng/mL (0.5-3.6)
[2018-07-06] MEDS ORDERED: MEDICATION NOT ON FORMULARY EA (Furosemide (Lasix) 40 MG) PO SCH (09:00)
[2018-07-06] MEDS ORDERED: MEDICATION NOT ON FORMULARY EA (Bupropion Hcl (Wellbutrin Xl) 1 TAB) PO SCH (09:00)
[2018-07-06] MEDS ORDERED: SPIRONOLACTONE 25 MG PO SCH (09:00)
[2018-07-06] MEDS: AMLODIPINE 10MG TABLET PO SCH (09:50)
[2018-07-06] MEDS: BUPROPION HCL 150MG TABLET XL 24HR PO SCH ×2 (09:50)
[2018-07-06] MEDS: FUROSEMIDE 40MG TABLET PO SCH (09:51)
[2018-07-06] MEDS: SPIRONOLACTONE 25MG TABLET PO SCH (09:51)
[2018-07-06] MEDS: CARVEDILOL 12.5MG TABLET PO SCH ×2 (09:51→21:40)
[2018-07-06] MEDS: LOSARTAN POTASSIUM 25 MG TABLET PO SCH ×2 (09:51)
[2018-07-06] MEDS: ASPIRIN 81MG EC TABLET PO SCH (09:51)
[2018-07-06] MEDS ORDERED: BUPROPION HCL 150MG TABLET XL 24HR PO SCH (10:30)
[2018-07-06] MEDS: FLUOXETINE HCL 20MG CAPSULE PO SCH (12:01)
[2018-07-06] MEDS: OLANZAPINE 10MG TABLET PO SCH (12:02)
[2018-07-06 13:49] LABS: PLATELET ESTIMATE NORMAL
[2018-07-06 13:50] LABS: MEAN PLATELET VOLUME 10.7 fl (7.4-10.4); PLATELET 192 x1000/uL (130-400)
[2018-07-06] MEDS: MIDODRINE HCL 2.5MG TABLET PO SCH ×2 (16:25→17:12)
[2018-07-06] MEDS ORDERED: MEDICATION NOT ON FORMULARY EA (Olanzapine 1 TAB) PO SCH (17:00)
[2018-07-06] MEDS ORDERED: ATORVASTATIN CALCIUM 20MG TABLET PO SCH (21:00)
[2018-07-06 21:42] LABS: CREATINE KINASE 132 IU/L (39-308)
[2018-07-06 21:43] LABS: CREATINE KINASE MB FRACTION < 1.0 ng/mL (0.5-3.6)
[2018-07-07] VITALS: BP 118/66
[2018-07-07] MEDS: IPRATROPIUM/ALBUTEROL 0.5-3(2.5)MG/3ML NEB HHN SCH ×3 (02:03→15:29)
[2018-07-07 04:00] VITALS: BP 110/70
[2018-07-07] MEDS: HYDROCODONE/ACETAMINOPHEN 5/325MG TABLET PO PRN (05:44)
[2018-07-07 08:00] VITALS: BP 118/83
[2018-07-07] MEDS: OLANZAPINE 10MG TABLET PO SCH (08:52)
[2018-07-07] MEDS: BUPROPION HCL 150MG TABLET XL 24HR PO SCH (08:53)
[2018-07-07] MEDS: MIDODRINE HCL 2.5MG TABLET PO SCH ×2 (08:54→13:00)
[2018-07-07] MEDS: SPIRONOLACTONE 25MG TABLET PO SCH (08:54)
[2018-07-07] MEDS: FUROSEMIDE 40MG TABLET PO SCH (08:54)
[2018-07-07] MEDS: ASPIRIN 81MG EC TABLET PO SCH (08:54)
[2018-07-07] MEDS: LOSARTAN POTASSIUM 25 MG TABLET PO SCH (08:54)
[2018-07-07] MEDS: CARVEDILOL 12.5MG TABLET PO SCH (08:55)
[2018-07-07] MEDS: AMLODIPINE 10MG TABLET PO SCH (08:55)
[2018-07-07] MEDS: FLUOXETINE HCL 20MG CAPSULE PO SCH (08:55)
[2018-07-07] MEDS: BUSPIRONE HCL 10MG TABLET PO SCH (09:02)
[2018-07-07] MEDS ORDERED: REGADENOSON 0.4 MG/5 ML IV ONE (10:30)
[2018-07-07 12:00] VITALS: BP 127/85
[2018-07-07 15:38] LABS: CREATINE KINASE 129 IU/L (39-308); CREATINE KINASE MB FRACTION < 1.0 ng/mL (0.5-3.6); HDL CHOLESTEROL 35 mg/dL (40-59); LDL CHOLESTEROL 130 mg/dL (5-100); T4 FREE 0.85 ng/dL (0.76-1.46)
[2018-07-07 15:49] VITALS: BP 113/72
[2018-07-08] MEDS ORDERED: ASPIRIN 81MG TABLET PO SCH (09:00)
[2018-07-09 19:06] LABS: INFLUENZA A AB CF 1:32 (Neg:<1:8); INFLUENZA B AB CF 1:32 (Neg:<1:8)
== END 2018-07-07 18:02 | disposition home or self-care (01) | DRG 194 ==
LOC: EDBEDREQ 17:43 → ENRESERV 18:48 → ER 20:34 → 8WST 22:05
PROVIDERS: ADMIT Hospitalist; ATTEND Hospitalist
DX: I11.0 Hypertensive heart disease with heart failure (principal); E78.5 Hyperlipidemia, unspecified; I50.33 Acute on chronic diastolic (congestive) heart failure; F31.9 Bipolar disorder, unspecified; F17.210 Nicotine dependence, cigarettes, uncomplicated; Z79.899 Other long term (current) drug therapy; Z71.6 Tobacco abuse counseling
CPT/HCPCS: 36415; 71045; 78582; 80061; 82550; 82553; 83036; 83880; 84439; 84443; 84484; 85379; 86710; 93005; 93970; 94640; 96374; 96375; 99285; A9558; J1940; J2270; J2405; J7620

== ENCOUNTER 2018-09-10 11:49 | Inpatient (IN) | payer SELFPAY ==
[~2018-09-10] VITALS: Ht 165.1 cm; Wt 99.8 kg
[~2018-09-10 11:49] MED LIST changes: +ATOR20TA PO; +COR25 PO; -FLUO20CA33 PO; +FURO-151 PO; +LOSA25TA3 PO; +SPIR25TA PO
[2018-09-10] MEDS ORDERED: ASPIRIN 81MG TABLET PO ONE (12:30)
[2018-09-10 13:01] LABS: HEMATOCRIT. 47.6 % (42.0-52.0); MEAN CORPUSCULAR HEMOGLOBIN 29.2 pg (28.0-32.0); MEAN CORPUSCULAR VOLUME 86.9 fL (80.0-94.0); RED BLOOD CELL COUNT 5.48 mill/uL (4.7-6.1); RED CELL DISTRIBUTION WIDTH 14.8 % (11.6-14.6)
[2018-09-10 13:08] LABS: *AMPHETAMINES SCREEN URINE NEGATIVE (NEGATIVE); *BARBITURATES SCREEN URINE NEGATIVE (NEGATIVE); *BENZODIAZEPINES SCREEN URINE PRESUMTIVE POSITIVE (NEGATIVE); *COCAINE SCREEN URINE PRESUMTIVE POSITIVE (NEGATIVE); METHADONE URINE SCREEN NEGATIVE (NEGATIVE); OPIATES URINE SCREEN NEGATIVE (NEGATIVE)
[2018-09-10 13:09] LABS: CANNABINOID URINE SCREEN NEGATIVE (NEGATIVE); PHENCYCLIDINE URINE SCREEN NEGATIVE (NEGATIVE)
[2018-09-10 13:11] LABS: CHLORIDE 106 mEq/L (98-107)
[2018-09-10 13:13] LABS: PLATELET ESTIMATE NORMAL
[2018-09-10 13:14] LABS: PLATELET 168 x1000/uL (130-400)
[2018-09-10] MEDS ORDERED: ONDANSETRON 4MG ODT PO ONE (13:30)
[2018-09-10] MEDS ORDERED: MORPHINE SULFATE 10 MG/ML CPJ IM ONE (13:30)
[2018-09-10] MEDS ORDERED: LIDOCAINE HCL 1% 20ML VIAL (Pyxis) INJ ONE (13:42)
[2018-09-10] MEDS ORDERED: SODIUM BICARBONATE 4% (2.4MEQ) 5ML VIAL IV ONE (13:42)
[2018-09-10 16:45] VITALS: BP 113/74
[2018-09-10 16:52] VITALS: BP 113/74
[2018-09-10] MEDS ORDERED: ACETAMINOPHEN 325MG TABLET PO PRN (17:15)
[2018-09-10] MEDS ORDERED: GUAIFENESIN 200MG/10ML SUGAR FREE UDC PO PRN (17:15)
[2018-09-10] MEDS ORDERED: CLONIDINE 0.1MG TABLET PO PRN (17:15)
[2018-09-10] MEDS ORDERED: DIPHENHYDRAMINE 50MG/ML VIAL IV PRN (17:15)
[2018-09-10] MEDS ORDERED: ENOXAPARIN 40MG/0.4ML SYR SUBCUT SCH (17:15)
[2018-09-10] MEDS ORDERED: ONDANSETRON HCL 4MG/2ML INJ IV PRN (17:15)
[2018-09-10] MEDS ORDERED: LORAZEPAM 2MG/ML CPJ IV PRN (17:15)
[2018-09-10] MEDS ORDERED: IPRATROPIUM/ALBUTEROL 0.5-3(2.5)MG/3ML NEB INH PRN (17:15)
[2018-09-10] MEDS ORDERED: NA PHOS,M-B/NA PHOS,DI-BA ENEMA 118ML PR PRN (17:15)
[2018-09-10] MEDS ORDERED: DOCUSATE SODIUM 100MG CAPSULE PO PRN (17:15)
[2018-09-10] MEDS ORDERED: MAGNESIUM/ALUMINUM HYDROXIDE/SIMETHICONE 30ML UDC PO PRN (17:15)
[2018-09-10] MEDS: MORPHINE SULFATE 10MG/5ML ORAL SOLN UDC PO PRN ×2 (18:02→22:46)
[2018-09-10] MEDS: FUROSEMIDE 40MG/4ML VIAL IV SCH (18:02)
[2018-09-10 20:00] VITALS: BP 113/73
[2018-09-10] MEDS: LEVOFLOXACIN 500MG PREMIX 100 ML IV SCH (20:49)
[2018-09-10] MEDS: SODIUM CHLORIDE 0.9% INJ 3ML FLUSH IVF SCH (20:49)
[2018-09-10] MEDS: ENOXAPARIN 30MG/0.3ML SYR SUBCUT SCH (20:49)
[2018-09-11] VITALS: BP 117/73
[2018-09-11 00:27] LABS: CREATINE KINASE 542 IU/L (39-308)
[2018-09-11 00:31] LABS: CREATINE KINASE MB FRACTION 1.1 ng/mL (0.5-3.6)
[2018-09-11] MEDS: MORPHINE SULFATE 10MG/5ML ORAL SOLN UDC PO PRN ×4 (02:34→20:01)
[2018-09-11 04:00] VITALS: BP 109/62
[2018-09-11] MEDS: SODIUM CHLORIDE 0.9% INJ 3ML FLUSH IVF SCH ×3 (05:14→20:02)
[2018-09-11 07:00] LABS: BASOPHILS % 0.8 % (0.0-2.0); EOSINOPHILS % 1.7 % (0.0-5.0); HEMATOCRIT. 46.8 % (42.0-52.0); HEMOGLOBIN. 15.5 g/dL (14.0-18.0); LYMPHOCYTES % 15.5 % (20.0-50.0); MEAN CORPUSCULAR HEMOGLOBIN 28.7 pg (28.0-32.0); MEAN CORPUSCULAR VOLUME 86.8 fL (80.0-94.0); MONOCYTES % 8.5 % (2.0-8.0); NEUTROPHILS % 73.5 % (40.0-76.0); RED BLOOD CELL COUNT 5.39 mill/uL (4.7-6.1); RED CELL DISTRIBUTION WIDTH 14.6 % (11.6-14.6)
[2018-09-11 08:00] VITALS: BP 117/79
[2018-09-11] MEDS ORDERED: PNEUMOCOCCAL 23-VAL P-SAC VAC 0.5 ML IM ONE (08:00)
[2018-09-11 09:07] LABS: MEAN PLATELET VOLUME 10.6 fl (7.4-10.4); PLATELET 158 x1000/uL (130-400)
[2018-09-11] MEDS: FUROSEMIDE 40MG/4ML VIAL IV SCH (09:30)
[2018-09-11] MEDS: ASPIRIN 81MG EC TABLET PO SCH (09:30)
[2018-09-11] MEDS: ENOXAPARIN 30MG/0.3ML SYR SUBCUT SCH ×2 (09:32→20:02)
[2018-09-11] MEDS ORDERED: INFLUENZA VIRUS VACCINE(AFLURIA) 0.5ML SYR IM ONE (10:00)
[2018-09-11 10:13] LABS: CHLORIDE 102 mEq/L (98-107)
[2018-09-11 10:27] LABS: CREATINE KINASE MB FRACTION 1.2 ng/mL (0.5-3.6); T4 FREE 1.23 ng/dL (0.76-1.46)
[2018-09-11 10:32] LABS: LDL CHOLESTEROL 172 mg/dL (5-100)
[2018-09-11 10:33] LABS: CREATINE KINASE 435 IU/L (39-308)
[2018-09-11 10:38] LABS: HDL CHOLESTEROL 29 mg/dL (40-59)
[2018-09-11 12:00] VITALS: BP 115/79
[2018-09-11] MEDS: LEVOFLOXACIN 500MG PREMIX 100 ML IV SCH (18:32)
[2018-09-11 20:00] VITALS: BP 110/66
[2018-09-12] VITALS: BP 116/72
[2018-09-12] MEDS: MORPHINE SULFATE 10MG/5ML ORAL SOLN UDC PO PRN (00:11)
[2018-09-12 04:00] VITALS: BP 100/58
[2018-09-12] MEDS: HYDROCODONE/APAP 7.5/325MG 1 TAB TABLET PO PRN ×2 (04:53→09:35)
[2018-09-12] MEDS: SODIUM CHLORIDE 0.9% INJ 3ML FLUSH IVF SCH ×2 (06:05→12:50)
[2018-09-12 06:17] LABS: HEMOGLOBIN. 13.7 g/dL (14.0-18.0); MEAN CORPUSCULAR HEMOGLOBIN 28.8 pg (28.0-32.0); MEAN CORPUSCULAR VOLUME 86.3 fL (80.0-94.0); MEAN PLATELET VOLUME 10.8 fl (7.4-10.4); PLATELET 142 x1000/uL (130-400); RED BLOOD CELL COUNT 4.75 mill/uL (4.7-6.1); RED CELL DISTRIBUTION WIDTH 14.5 % (11.6-14.6)
[2018-09-12 08:00] VITALS: BP 98/60
[2018-09-12] MEDS: ASPIRIN 81MG EC TABLET PO SCH (09:32)
[2018-09-12] MEDS: FUROSEMIDE 40MG/4ML VIAL IV SCH (09:32)
[2018-09-12] MEDS: ENOXAPARIN 30MG/0.3ML SYR SUBCUT SCH (09:33)
[2018-09-12 10:19] LABS: PLATELET ESTIMATE NORMAL
[2018-09-12 10:48] LABS: CHLORIDE 105 mEq/L (98-107)
[2018-09-12 12:00] VITALS: BP 163/73
[2018-09-12 14:35] VITALS: BP 106/63
== END 2018-09-12 14:00 | disposition home or self-care (01) | DRG 198 ==
LOC: ER 11:49 → ENRESERV 15:58 → 7WST 16:07 → EDBEDREQ 16:11 → EDBEDREQTM 16:11
PROVIDERS: ADMIT Internal Medicine; ATTEND Internal Medicine
PROC: B5181ZA Fluoroscopy of Superior Vena Cava using Low Osmolar Contrast, Guidance (ICD-10-PCS; principal; 2018-09-10)
PROC: 02HV33Z Insertion of Infusion Device into Superior Vena Cava, Percutaneous Approach (ICD-10-PCS; 2018-09-10)
PROC: B548ZZA Ultrasonography of Superior Vena Cava, Guidance (ICD-10-PCS; 2018-09-10)
DX: R07.89 Other chest pain (principal); I25.10 Atherosclerotic heart disease of native coronary artery without angina pectoris; I11.0 Hypertensive heart disease with heart failure; I50.9 Heart failure, unspecified; D64.9 Anemia, unspecified; E78.5 Hyperlipidemia, unspecified; F10.10 Alcohol abuse, uncomplicated; F13.90 Sedative, hypnotic, or anxiolytic use, unspecified, uncomplicated; F14.90 Cocaine use, unspecified, uncomplicated; Z79.899 Other long term (current) drug therapy
CPT/HCPCS: 36415; 36569; 71045; 76937; 77001; 80048; 80061; 80305; 82550; 82553; 83036; 83880; 84439; 84443; 84484; 85379; 90686; 90732; 93005; 93306; 96374; 96375; 99285; C1725; J1650; J1940; J1956; J2270; J3490; J7040; Q0162

== ENCOUNTER 2018-10-16 00:09 | Inpatient (IN) | payer MEDICAID, OTHER ==
[~2018-10-16] VITALS: Ht 180.3 cm; Wt 104.8 kg
[2018-10-16] MEDS ORDERED: FUROSEMIDE 40MG/4ML VIAL IVP ONE (01:00)
[2018-10-16] MEDS ORDERED: ASPIRIN 81MG TABLET PO ONE (01:00)
[2018-10-16] MEDS ORDERED: NITROGLYCERIN 0.4MG TABLET SL SL PRN (01:00)
[2018-10-16 01:32] LABS: BASOPHILS % 0.8 % (0.0-2.0); EOSINOPHILS % 2.6 % (0.0-5.0); HEMATOCRIT. 47.6 % (42.0-52.0); HEMOGLOBIN. 16.1 g/dL (14.0-18.0); LYMPHOCYTES % 17.8 % (20.0-50.0); MEAN CORPUSCULAR HEMOGLOBIN 28.2 pg (28.0-32.0); MEAN CORPUSCULAR VOLUME 83.8 fL (80.0-94.0); MEAN PLATELET VOLUME 10.6 fl (7.4-10.4); MONOCYTES % 11.3 % (2.0-8.0); NEUTROPHILS % 67.5 % (40.0-76.0); PLATELET 187 x1000/uL (130-400); RED BLOOD CELL COUNT 5.68 mill/uL (4.7-6.1); RED CELL DISTRIBUTION WIDTH 14.7 % (11.6-14.6)
[2018-10-16 01:40] LABS: CHLORIDE 100 mEq/L (98-107)
[2018-10-16] MEDS ORDERED: POTASSIUM CHLORIDE 20MEQ TABLET SR PO ONE (02:30)
[2018-10-16] MEDS ORDERED: ACETAMINOPHEN 325MG TABLET PO ONE (02:45)
[2018-10-16] MEDS ORDERED: MORPHINE SULFATE 4 MG/ML CPJ (NOT FOR IM USE) IV ONE ×2 (03:15→09:00)
[2018-10-16] MEDS ORDERED: SODIUM CHLORIDE 0.9% 500 ML IV ONE (03:15)
[2018-10-16 03:34] LABS: CLARITY URINE CLEAR (CLEAR); COLOR URINE YELLOW (YELLOW); KETONES URINE NEGATIVE (NEGATIVE); LEUKOCYTE ESTERASE URINE NEGATIVE (NEGATIVE); NITRITE URINE NEGATIVE (NEGATIVE); OCCULT BLOOD URINE NEGATIVE (NEGATIVE); PH URINE 5.5 (4.5-8.0); PROTEIN URINE NEGATIVE (NEGATIVE); SPECIFIC GRAVITY URINE 1.008 (1.005-1.030); UROBILINOGEN URINE 0.2 E.U./dL (0.2-1.0)
[2018-10-16 07:44] LABS: T4 FREE 1.18 ng/dL (0.76-1.46)
[2018-10-16 09:45] VITALS: BP 117/72
[2018-10-16] MEDS ORDERED: BUPR-102 PO (10:42)
[2018-10-16 12:00] VITALS: BP 111/67
[2018-10-16] MEDS: HYDROCODONE/ACETAMINOPHEN 5/325MG TABLET PO PRN ×2 (13:34→18:01)
[2018-10-16 15:23] LABS: BASOPHILS % 0.8 % (0.0-2.0); EOSINOPHILS % 3.8 % (0.0-5.0); HEMATOCRIT. 46.5 % (42.0-52.0); HEMOGLOBIN. 15.7 g/dL (14.0-18.0); LYMPHOCYTES % 20.7 % (20.0-50.0); MEAN CORPUSCULAR HEMOGLOBIN 28.5 pg (28.0-32.0); MEAN CORPUSCULAR VOLUME 84.7 fL (80.0-94.0); MEAN PLATELET VOLUME 10.4 fl (7.4-10.4); MONOCYTES % 12.9 % (2.0-8.0); NEUTROPHILS % 61.8 % (40.0-76.0); PLATELET 168 x1000/uL (130-400); RED CELL DISTRIBUTION WIDTH 14.9 % (11.6-14.6)
[2018-10-16 15:29] LABS: CHLORIDE 102 mEq/L (98-107)
[2018-10-16 15:40] LABS: CREATINE KINASE 390 IU/L (39-308)
[2018-10-16 15:41] LABS: CREATINE KINASE MB FRACTION 1.5 ng/mL (0.5-3.6)
[2018-10-16 16:00] VITALS: BP 118/64
[2018-10-16] MEDS ORDERED: GUAIFENESIN/CODEINE 200-20MG/10ML UDC PO PRN (18:15)
[2018-10-16] MEDS ORDERED: POTASSIUM CHLORIDE 20MEQ TABLET SR PO NR (18:15)
[2018-10-16] MEDS ORDERED: FUROSEMIDE 40MG/4ML VIAL IVP SCH (18:15)
[2018-10-16] MEDS ORDERED: CARVEDILOL 25MG TABLET PO SCH (19:00)
[2018-10-16] MEDS ORDERED: OLANZAPINE 10MG TABLET PO SCH (19:00)
[2018-10-16] MEDS ORDERED: MORPHINE SULFATE 4 MG/ML CPJ (NOT FOR IM USE) IV PRN (19:00)
[2018-10-16 20:00] VITALS: BP 108/62
[2018-10-16] MEDS ORDERED: BUPROPION HCL 150MG TABLET XL 24HR PO SCH (20:00)
[2018-10-16] MEDS ORDERED: ATORVASTATIN CALCIUM 20MG TABLET PO SCH (21:00)
[2018-10-17] MEDS ORDERED: BUPROPION HCL 150MG TABLET XL 24HR PO SCH (09:00)
== END 2018-10-16 22:39 | disposition left against medical advice (07) | DRG 243 ==
LOC: ER 00:09 → 5WST 02:58 → EDBEDREQTM 03:18 → EDBEDREQ 03:18 → ENRESERV 08:25
PROVIDERS: ADMIT Family Medicine; ATTEND Family Medicine
DX: K21.9 Gastro-esophageal reflux disease without esophagitis (principal); I11.0 Hypertensive heart disease with heart failure; I50.32 Chronic diastolic (congestive) heart failure; E66.9 Obesity, unspecified; E78.5 Hyperlipidemia, unspecified; F17.210 Nicotine dependence, cigarettes, uncomplicated; Z53.21 Procedure and treatment not carried out due to patient leaving prior to being seen by health care provider; F32.9 Major depressive disorder, single episode, unspecified; F41.9 Anxiety disorder, unspecified; I25.10 Atherosclerotic heart disease of native coronary artery without angina pectoris; Z68.32 Body mass index [BMI] 32.0-32.9, adult; Z82.49 Family history of ischemic heart disease and other diseases of the circulatory system; Z79.899 Other long term (current) drug therapy
CPT/HCPCS: 36415; 71045; 80048; 80061; 82550; 82553; 83880; 84439; 84443; 84484; 93005; 96374; 99285; J1940; J2270; J7040

== ENCOUNTER 2018-10-27 09:27 | Inpatient (IN) | payer MEDICAID ==
[~2018-10-27] VITALS: Ht 322.6 cm; Wt 103.4 kg
[~2018-10-27 09:27] MED LIST changes: +BUPR-102 PO; -LOSA25TA3 PO; -SPIR25TA PO
[2018-10-27 10:30] LABS: BASOPHILS % 0.7 % (0.0-2.0); EOSINOPHILS % 1.6 % (0.0-5.0); HEMATOCRIT. 48.5 % (42.0-52.0); HEMOGLOBIN. 16.1 g/dL (14.0-18.0); LYMPHOCYTES % 17.3 % (20.0-50.0); MEAN CORPUSCULAR HEMOGLOBIN 28.4 pg (28.0-32.0); MEAN CORPUSCULAR VOLUME 85.7 fL (80.0-94.0); MEAN PLATELET VOLUME 10.1 fl (7.4-10.4); MONOCYTES % 9.1 % (2.0-8.0); NEUTROPHILS % 71.3 % (40.0-76.0); PLATELET 195 x1000/uL (130-400); RED BLOOD CELL COUNT 5.67 mill/uL (4.7-6.1); RED CELL DISTRIBUTION WIDTH 15.3 % (11.6-14.6)
[2018-10-27 10:37] LABS: CHLORIDE 108 mEq/L (98-107)
[2018-10-27] MEDS ORDERED: ONDANSETRON HCL 4MG/2ML INJ IV STA (11:10)
[2018-10-27] MEDS ORDERED: MORPHINE SULFATE 4 MG/ML CPJ (NOT FOR IM USE) IV STA (11:10)
[2018-10-27] MEDS ORDERED: ASPIRIN 325MG TABLET PO ONE (11:45)
[2018-10-27] MEDS ORDERED: FUROSEMIDE 20MG/2ML VIAL IVP NR (11:45)
[2018-10-27] MEDS ORDERED: ACETAMINOPHEN 325MG TABLET PO PRN (13:30)
[2018-10-27] MEDS ORDERED: IPRATROPIUM/ALBUTEROL 0.5-3(2.5)MG/3ML NEB HHN PRN (13:30)
[2018-10-27] MEDS ORDERED: NITROGLYCERIN 0.4MG TABLET SL SL PRN (13:30)
[2018-10-27] MEDS ORDERED: ONDANSETRON HCL 4MG/2ML INJ IV PRN (13:30)
[2018-10-27] MEDS ORDERED: FUROSEMIDE 40MG/4ML VIAL IVP SCH (13:30)
[2018-10-27] MEDS ORDERED: MORPHINE SULFATE 4 MG/ML CPJ (NOT FOR IM USE) IV SCH (14:30)
[2018-10-27 17:03] LABS: CLARITY URINE CLEAR (CLEAR); COLOR URINE YELLOW (YELLOW); KETONES URINE NEGATIVE (NEGATIVE); LEUKOCYTE ESTERASE URINE NEGATIVE (NEGATIVE); NITRITE URINE NEGATIVE (NEGATIVE); OCCULT BLOOD URINE NEGATIVE (NEGATIVE); PROTEIN URINE NEGATIVE (NEGATIVE); SPECIFIC GRAVITY URINE 1.006 (1.005-1.030); UROBILINOGEN URINE 0.2 E.U./dL (0.2-1.0)
[2018-10-27 17:30] VITALS: BP 135/76
[2018-10-27 17:30] LABS: *AMPHETAMINES SCREEN URINE NEGATIVE (NEGATIVE); *BARBITURATES SCREEN URINE NEGATIVE (NEGATIVE); *BENZODIAZEPINES SCREEN URINE NEGATIVE (NEGATIVE); *COCAINE SCREEN URINE NEGATIVE (NEGATIVE)
[2018-10-27 17:31] LABS: CANNABINOID URINE SCREEN NEGATIVE (NEGATIVE); METHADONE URINE SCREEN NEGATIVE (NEGATIVE); OPIATES URINE SCREEN PRESUMTIVE POSITIVE (NEGATIVE); PHENCYCLIDINE URINE SCREEN NEGATIVE (NEGATIVE)
[2018-10-27] MEDS: ENOXAPARIN 30MG/0.3ML SYR SUBCUT SCH (18:17)
[2018-10-27] MEDS: FUROSEMIDE 40MG/4ML VIAL IVP SCH (18:18)
[2018-10-27 19:57] VITALS: BP 125/86
[2018-10-27] MEDS: MORPHINE SULFATE 4 MG/ML CPJ (NOT FOR IM USE) IV PRN (21:06)
[2018-10-27] MEDS: ATORVASTATIN CALCIUM 40MG TABLET PO SCH (21:07)
[2018-10-27] MEDS: CARVEDILOL 12.5MG TABLET PO SCH (21:07)
[2018-10-27] MEDS: HYDROCODONE/ACETAMINOPHEN 5/325MG TABLET PO PRN (22:31)
[2018-10-28] VITALS: BP 116/86
[2018-10-28] MEDS: MORPHINE SULFATE 4 MG/ML CPJ (NOT FOR IM USE) IV PRN ×5 (01:40→21:38)
[2018-10-28 04:00] VITALS: BP 105/52
[2018-10-28] MEDS: HYDROCODONE/ACETAMINOPHEN 5/325MG TABLET PO PRN (04:14)
[2018-10-28] MEDS: FUROSEMIDE 40MG/4ML VIAL IVP SCH ×2 (06:29→16:49)
[2018-10-28] MEDS: ENOXAPARIN 30MG/0.3ML SYR SUBCUT SCH ×2 (06:29→16:50)
[2018-10-28 08:00] VITALS: BP 106/73
[2018-10-28] MEDS: POTASSIUM CHLORIDE 20MEQ TABLET SR PO SCH (08:26)
[2018-10-28] MEDS: ASPIRIN 81MG TABLET PO SCH (08:26)
[2018-10-28] MEDS: CARVEDILOL 12.5MG TABLET PO SCH ×2 (08:27→21:38)
[2018-10-28] MEDS: LOSARTAN POTASSIUM 25 MG TABLET PO SCH (08:28)
[2018-10-28 08:30] LABS: BASOPHILS % 0.7 % (0.0-2.0); EOSINOPHILS % 2.9 % (0.0-5.0); HEMATOCRIT. 47.7 % (42.0-52.0); HEMOGLOBIN. 15.9 g/dL (14.0-18.0); LYMPHOCYTES % 17.6 % (20.0-50.0); MEAN CORPUSCULAR HEMOGLOBIN 28.7 pg (28.0-32.0); MEAN CORPUSCULAR VOLUME 86.1 fL (80.0-94.0); MONOCYTES % 10.8 % (2.0-8.0); RED BLOOD CELL COUNT 5.53 mill/uL (4.7-6.1); RED CELL DISTRIBUTION WIDTH 15.4 % (11.6-14.6)
[2018-10-28] MEDS ORDERED: BUSPIRONE HCL 30 MG PO SCH (09:00)
[2018-10-28] MEDS ORDERED: BUPROPION HCL 150MG TABLET XL 24HR PO SCH ×2 (09:00→18:00)
[2018-10-28 09:07] LABS: PLATELET 206 x1000/uL (130-400)
[2018-10-28 09:52] LABS: CHLORIDE 101 mEq/L (98-107)
[2018-10-28 12:00] VITALS: BP 111/75
[2018-10-28] MEDS ORDERED: BUPR300T52 PO (14:25)
[2018-10-28 16:00] VITALS: BP 115/79
[2018-10-28] MEDS ORDERED: OLANZAPINE 10MG TABLET PO SCH (17:00)
[2018-10-28 20:33] VITALS: BP 110/74
[2018-10-28] MEDS: ATORVASTATIN CALCIUM 40MG TABLET PO SCH (21:37)
[2018-10-29] VITALS: BP 99/56
[2018-10-29 04:43] VITALS: BP 108/66
[2018-10-29 06:08] LABS: BASOPHILS % 0.6 % (0.0-2.0); EOSINOPHILS % 4.1 % (0.0-5.0); HEMATOCRIT. 48.8 % (42.0-52.0); HEMOGLOBIN. 16.2 g/dL (14.0-18.0); LYMPHOCYTES % 18.8 % (20.0-50.0); MEAN PLATELET VOLUME 10.1 fl (7.4-10.4); MONOCYTES % 7.1 % (2.0-8.0); NEUTROPHILS % 69.4 % (40.0-76.0); PLATELET 182 x1000/uL (130-400); RED CELL DISTRIBUTION WIDTH 15.1 % (11.6-14.6)
[2018-10-29 06:16] LABS: CHLORIDE 102 mEq/L (98-107)
[2018-10-29] MEDS: ENOXAPARIN 30MG/0.3ML SYR SUBCUT SCH (06:32)
[2018-10-29] MEDS: FUROSEMIDE 40MG/4ML VIAL IVP SCH (06:32)
[2018-10-29] MEDS: POTASSIUM CHLORIDE 20MEQ TABLET SR PO SCH (08:46)
[2018-10-29] MEDS: LOSARTAN POTASSIUM 25 MG TABLET PO SCH (08:48)
[2018-10-29] MEDS: CARVEDILOL 12.5MG TABLET PO SCH (08:48)
[2018-10-29] MEDS: ASPIRIN 81MG TABLET PO SCH (08:49)
[2018-10-29] MEDS: HYDROCODONE/ACETAMINOPHEN 5/325MG TABLET PO PRN (08:54)
[2018-10-29 08:55] VITALS: BP 103/75
[2018-10-29] MEDS ORDERED: BUPROPION HCL 150MG TABLET XL 24HR PO SCH (09:00)
[2018-10-29] MEDS ORDERED: BUPROPION HCL 450 MG PO SCH (09:00)
[2018-10-29 12:00] VITALS: BP 122/85
[2018-10-29 13:34] VITALS: BP 122/85
== END 2018-10-29 14:40 | disposition home or self-care (01) | DRG 194 ==
LOC: ER 09:35 → 6WST 12:26 → EDBEDREQ 12:27 → ENRESERV 15:56
PROVIDERS: ADMIT Internal Medicine; ATTEND Internal Medicine
DX: I11.0 Hypertensive heart disease with heart failure (principal); E87.8 Other disorders of electrolyte and fluid balance, not elsewhere classified; I27.20 Pulmonary hypertension, unspecified; I42.0 Dilated cardiomyopathy; E66.09 Other obesity due to excess calories; I50.43 Acute on chronic combined systolic (congestive) and diastolic (congestive) heart failure; I42.9 Cardiomyopathy, unspecified; E78.00 Pure hypercholesterolemia, unspecified; E78.5 Hyperlipidemia, unspecified; F17.200 Nicotine dependence, unspecified, uncomplicated; I34.0 Nonrheumatic mitral (valve) insufficiency; M94.0 Chondrocostal junction syndrome [Tietze]; Z79.899 Other long term (current) drug therapy; Z91.19 Patient's noncompliance with other medical treatment and regimen; Z71.6 Tobacco abuse counseling; Z71.3 Dietary counseling and surveillance; Z68.33 Body mass index [BMI] 33.0-33.9, adult
CPT/HCPCS: 36415; 71045; 80048; 80305; 83880; 84484; 87804; 93005; 96374; 96375; 99285; J1650; J1940; J2270; J2405

== ENCOUNTER 2018-11-29 21:21 | Emergency (ER) | payer MEDICAID ==
[~2018-11-29] VITALS: Ht 172.7 cm; Wt 109.0 kg
[~2018-11-29 21:21] MED LIST changes: -BUPR-102 PO; -BUSP30TA2 PO
[2018-11-30 06:43] VITALS: BP 116/80
== END 2018-11-30 08:20 | disposition left against medical advice (07) ==
LOC: ER 23:44
DX: R07.89 Other chest pain (principal); Z53.21 Procedure and treatment not carried out due to patient leaving prior to being seen by health care provider
CPT/HCPCS: 93005

== ENCOUNTER 2019-02-08 07:38 | Inpatient (IN) | payer MEDICAID ==
[~2019-02-08] VITALS: Ht 170.2 cm; Wt 108.4 kg
[2019-02-08] MEDS ORDERED: HYDROCODONE/ACETAMINOPHEN 5/325MG TABLET PO STA (08:01)
[2019-02-08] MEDS ORDERED: FUROSEMIDE 40MG/4ML VIAL IV ONE (08:15)
[2019-02-08] MEDS ORDERED: NITROGLYCERIN 0.4MG TABLET SL SL PRN (08:15)
[2019-02-08] MEDS ORDERED: ASPIRIN 81MG TABLET PO ONE (08:15)
[2019-02-08 08:24] LABS: CHLORIDE 112 mEq/L (98-107)
[2019-02-08 08:25] LABS: PROTHROMBIN TIME 10.4 sec (9.6-11.0)
[2019-02-08 08:26] LABS: BASOPHILS % 0.7 % (0.0-2.0); HEMATOCRIT. 44.5 % (42.0-52.0); HEMOGLOBIN. 14.7 g/dL (14.0-18.0); MEAN CORPUSCULAR HEMOGLOBIN 28.1 pg (28.0-32.0); MEAN PLATELET VOLUME 10.5 fl (7.4-10.4); MONOCYTES % 6.3 % (2.0-8.0); PLATELET 147 x1000/uL (130-400); RED BLOOD CELL COUNT 5.24 mill/uL (4.7-6.1)
[2019-02-08] MEDS ORDERED: ONDANSETRON HCL 4MG/2ML INJ IV PRN (11:15)
[2019-02-08] MEDS ORDERED: ACETAMINOPHEN 325MG TABLET PO PRN (11:15)
[2019-02-08 13:33] VITALS: BP 152/95
[2019-02-08] MEDS ORDERED: HYDROCODONE/ACETAMINOPHEN 5/325MG TABLET PO PRN (14:00)
[2019-02-08] MEDS ORDERED: MORPHINE SULFATE 2 MG/ML CPJ (NOT FOR IM USE) IV PRN (14:15)
[2019-02-08] MEDS: NITROGLYCERIN OINT 1GM/INCH UDPKT TD SCH ×2 (15:10→21:22)
[2019-02-08] MEDS: MORPHINE SULFATE 4 MG/ML CPJ (NOT FOR IM USE) IV PRN ×2 (15:11→21:23)
[2019-02-08] MEDS: ENOXAPARIN 30MG/0.3ML SYR SUBCUT SCH (15:12)
[2019-02-08 16:00] VITALS: BP 123/85
[2019-02-08] MEDS ORDERED: BUPROPION HCL 150MG SR TABLET PO SCH (16:45)
[2019-02-08] MEDS: BUPROPION HCL 150MG TABLET XL 24HR PO SCH (17:21)
[2019-02-08] MEDS: FUROSEMIDE 40MG/4ML VIAL IVP SCH (17:23)
[2019-02-08 20:00] VITALS: BP 130/91
[2019-02-08] MEDS: ATORVASTATIN CALCIUM 40MG TABLET PO SCH (21:21)
[2019-02-08] MEDS: OLANZAPINE 10MG TABLET PO SCH (21:21)
[2019-02-08] MEDS: CARVEDILOL 3.125 MG TABLET PO SCH (21:22)
[2019-02-09] VITALS: BP 104/63
[2019-02-09] MEDS: ENOXAPARIN 30MG/0.3ML SYR SUBCUT SCH ×2 (01:57→14:00)
[2019-02-09 04:00] VITALS: BP 113/70
[2019-02-09] MEDS: NITROGLYCERIN OINT 1GM/INCH UDPKT TD SCH ×3 (05:40→21:03)
[2019-02-09 05:58] LABS: BASOPHILS % 0.9 % (0.0-2.0); EOSINOPHILS % 4.1 % (0.0-5.0); HEMATOCRIT. 45.8 % (42.0-52.0); HEMOGLOBIN. 15.2 g/dL (14.0-18.0); LYMPHOCYTES % 19.3 % (20.0-50.0); MEAN CORPUSCULAR HEMOGLOBIN 28.1 pg (28.0-32.0); MEAN CORPUSCULAR VOLUME 84.4 fL (80.0-94.0); MEAN PLATELET VOLUME 10.8 fl (7.4-10.4); MONOCYTES % 9.5 % (2.0-8.0); NEUTROPHILS % 66.2 % (40.0-76.0); PLATELET 156 x1000/uL (130-400); RED BLOOD CELL COUNT 5.43 mill/uL (4.7-6.1); RED CELL DISTRIBUTION WIDTH 15.2 % (11.6-14.6)
[2019-02-09 07:20] LABS: CHLORIDE 107 mEq/L (98-107)
[2019-02-09 08:00] VITALS: BP 118/69
[2019-02-09] MEDS: FUROSEMIDE 40MG/4ML VIAL IVP SCH ×2 (09:52→17:42)
[2019-02-09] MEDS: ASPIRIN 81MG TABLET PO SCH (09:52)
[2019-02-09] MEDS: BUPROPION HCL 150MG TABLET XL 24HR PO SCH (09:52)
[2019-02-09] MEDS: CARVEDILOL 3.125 MG TABLET PO SCH ×2 (09:53→21:00)
[2019-02-09] MEDS: LOSARTAN POTASSIUM 25 MG TABLET PO SCH (09:53)
[2019-02-09] MEDS: MORPHINE SULFATE 4 MG/ML CPJ (NOT FOR IM USE) IV PRN ×3 (10:59→18:52)
[2019-02-09] MEDS ORDERED: POTASSIUM CHLORIDE 20MEQ TABLET SR PO NR (11:15)
[2019-02-09 12:00] VITALS: BP 88/76
[2019-02-09 16:00] VITALS: BP 113/73
[2019-02-09 20:00] VITALS: BP 91/60
[2019-02-09] MEDS: ATORVASTATIN CALCIUM 40MG TABLET PO SCH (21:02)
[2019-02-09] MEDS: OLANZAPINE 10MG TABLET PO SCH (21:03)
[2019-02-10] VITALS: BP 101/71
[2019-02-10] MEDS: ENOXAPARIN 30MG/0.3ML SYR SUBCUT SCH ×2 (03:45→15:51)
[2019-02-10 04:00] VITALS: BP 111/77
[2019-02-10] MEDS: MORPHINE SULFATE 4 MG/ML CPJ (NOT FOR IM USE) IV PRN ×4 (04:21→20:33)
[2019-02-10] MEDS: NITROGLYCERIN OINT 1GM/INCH UDPKT TD SCH (06:20)
[2019-02-10 06:21] LABS: BASOPHILS % 0.7 % (0.0-2.0); EOSINOPHILS % 3.9 % (0.0-5.0); HEMATOCRIT. 46.4 % (42.0-52.0); HEMOGLOBIN. 15.3 g/dL (14.0-18.0); LYMPHOCYTES % 17.7 % (20.0-50.0); MEAN CORPUSCULAR HEMOGLOBIN 28.2 pg (28.0-32.0); MEAN CORPUSCULAR VOLUME 85.3 fL (80.0-94.0); MEAN PLATELET VOLUME 10.7 fl (7.4-10.4); MONOCYTES % 7.1 % (2.0-8.0); NEUTROPHILS % 70.6 % (40.0-76.0); PLATELET 152 x1000/uL (130-400); RED BLOOD CELL COUNT 5.44 mill/uL (4.7-6.1)
[2019-02-10 06:23] LABS: CHLORIDE 105 mEq/L (98-107)
[2019-02-10 08:00] VITALS: BP 120/84
[2019-02-10] MEDS: BUPROPION HCL 150MG TABLET XL 24HR PO SCH (09:36)
[2019-02-10] MEDS: FUROSEMIDE 40MG/4ML VIAL IVP SCH ×2 (09:36→18:01)
[2019-02-10] MEDS: CARVEDILOL 3.125 MG TABLET PO SCH (09:37)
[2019-02-10] MEDS: LOSARTAN POTASSIUM 25 MG TABLET PO SCH (09:37)
[2019-02-10] MEDS: ASPIRIN 81MG TABLET PO SCH (09:37)
[2019-02-10 11:55] LABS: *AMPHETAMINES SCREEN URINE NEGATIVE (NEGATIVE); *BARBITURATES SCREEN URINE NEGATIVE (NEGATIVE); *BENZODIAZEPINES SCREEN URINE NEGATIVE (NEGATIVE); *COCAINE SCREEN URINE NEGATIVE (NEGATIVE)
[2019-02-10 11:56] LABS: CANNABINOID URINE SCREEN NEGATIVE (NEGATIVE); METHADONE URINE SCREEN NEGATIVE (NEGATIVE); OPIATES URINE SCREEN PRESUMTIVE POSITIVE (NEGATIVE); PHENCYCLIDINE URINE SCREEN NEGATIVE (NEGATIVE)
[2019-02-10 12:00] VITALS: BP 121/80
[2019-02-10] MEDS: CARVEDILOL 25MG TABLET PO SCH (15:51)
[2019-02-10 16:00] VITALS: BP 100/53
[2019-02-10 20:00] VITALS: BP 113/79
[2019-02-10] MEDS ORDERED: ATORVASTATIN CALCIUM 20MG TABLET PO SCH (21:00)
[2019-02-10] MEDS: OLANZAPINE 10MG TABLET PO SCH (21:09)
[2019-02-10] MEDS ORDERED: LORAZEPAM 2MG/ML CPJ IV PRN (22:00)
[2019-02-11] VITALS: BP 115/77
[2019-02-11 04:00] VITALS: BP 122/81
[2019-02-11] MEDS: ENOXAPARIN 30MG/0.3ML SYR SUBCUT SCH ×2 (04:07→14:30)
[2019-02-11 06:50] LABS: HEMATOCRIT. 49.2 % (42.0-52.0); HEMOGLOBIN. 16.5 g/dL (14.0-18.0); MEAN CORPUSCULAR HEMOGLOBIN 28.5 pg (28.0-32.0); MEAN CORPUSCULAR VOLUME 85.1 fL (80.0-94.0); MEAN PLATELET VOLUME 10.6 fl (7.4-10.4); PLATELET 179 x1000/uL (130-400); RED BLOOD CELL COUNT 5.78 mill/uL (4.7-6.1); RED CELL DISTRIBUTION WIDTH 15.4 % (11.6-14.6)
[2019-02-11 08:00] VITALS: BP 90/43
[2019-02-11 08:40] LABS: CHLORIDE 105 mEq/L (98-107)
[2019-02-11] MEDS: BUPROPION HCL 150MG TABLET XL 24HR PO SCH ×2 (09:00→10:17)
[2019-02-11] MEDS: ASPIRIN 81MG TABLET PO SCH ×2 (09:00→10:17)
[2019-02-11] MEDS: FUROSEMIDE 40MG/4ML VIAL IVP SCH (09:00)
[2019-02-11] MEDS: LOSARTAN POTASSIUM 25 MG TABLET PO SCH (09:00)
[2019-02-11] MEDS: CARVEDILOL 25MG TABLET PO SCH (09:00)
[2019-02-11 11:04] LABS: PLATELET ESTIMATE NORMAL
[2019-02-11] MEDS ORDERED: SODIUM CHLORIDE 0.9% 200 ML IV NR (11:34)
[2019-02-11] MEDS: MORPHINE SULFATE 4 MG/ML CPJ (NOT FOR IM USE) IV PRN ×2 (11:44→16:18)
[2019-02-11 12:00] VITALS: BP 127/86
[2019-02-11 16:00] VITALS: BP 129/84
[2019-02-11 17:07] VITALS: BP 129/84
[2019-02-11] MEDS ORDERED: CARVEDILOL 25MG TABLET PO SCH (17:15)
[2019-02-12] MEDS ORDERED: FUROSEMIDE 20MG TABLET PO SCH (09:00)
== END 2019-02-11 18:32 | disposition home or self-care (01) | DRG 133 ==
LOC: ER 07:38 → 5WST 10:48 → EDBEDREQ 10:50 → EDBEDREQTM 10:52 → ENRESERV 12:11
PROVIDERS: ADMIT Internal Medicine Nephrology; ATTEND Internal Medicine Nephrology
DX: J96.90 Respiratory failure, unspecified, unspecified whether with hypoxia or hypercapnia (principal); I50.43 Acute on chronic combined systolic (congestive) and diastolic (congestive) heart failure; I27.20 Pulmonary hypertension, unspecified; E87.5 Hyperkalemia; I42.0 Dilated cardiomyopathy; I11.0 Hypertensive heart disease with heart failure; F14.90 Cocaine use, unspecified, uncomplicated; E78.00 Pure hypercholesterolemia, unspecified; E78.5 Hyperlipidemia, unspecified; E87.6 Hypokalemia; I34.0 Nonrheumatic mitral (valve) insufficiency; I47.1 Supraventricular tachycardia; F17.200 Nicotine dependence, unspecified, uncomplicated; E66.9 Obesity, unspecified; Z68.37 Body mass index [BMI] 37.0-37.9, adult; Z82.49 Family history of ischemic heart disease and other diseases of the circulatory system; Z91.19 Patient's noncompliance with other medical treatment and regimen; Z79.899 Other long term (current) drug therapy; Z71.51 Drug abuse counseling and surveillance of drug abuser; Z71.6 Tobacco abuse counseling
CPT/HCPCS: 36415; 71045; 80048; 80305; 83735; 83880; 84145; 84484; 93005; 93306; 96374; 99285; C1893; J1650; J1940; J2060; J2270

== ENCOUNTER 2019-05-17 11:52 | Inpatient (IN) | payer OTHER ==
[~2019-05-17] VITALS: Ht 170.2 cm; Wt 104.8 kg
[~2019-05-17 11:52] MED LIST changes: -COR25 PO; -OLAN20TA16 PO; +OLAN20TA34 PO
[2019-05-17] MEDS ORDERED: FUROSEMIDE 40MG/4ML VIAL IV ONE (13:15)
[2019-05-17 14:32] LABS: CHLORIDE 110 mEq/L (98-107)
[2019-05-17 14:36] LABS: ETHANOL BLOOD < 10 mg/dL
[2019-05-17 14:37] LABS: BASOPHILS % 0.5 % (0.0-2.0); EOSINOPHILS % 0.5 % (0.0-5.0); HEMATOCRIT. 43.2 % (42.0-52.0); HEMOGLOBIN. 14.4 g/dL (14.0-18.0); MEAN CORPUSCULAR HEMOGLOBIN 28.4 pg (28.0-32.0); MEAN CORPUSCULAR VOLUME 85.2 fL (80.0-94.0); MEAN PLATELET VOLUME 10.6 fl (7.4-10.4); MONOCYTES % 6.9 % (2.0-8.0); NEUTROPHILS % 82.1 % (40.0-76.0); PLATELET 152 x1000/uL (130-400); RED BLOOD CELL COUNT 5.07 mill/uL (4.7-6.1); RED CELL DISTRIBUTION WIDTH 15.8 % (11.6-14.6)
[2019-05-17] MEDS ORDERED: MORPHINE SULFATE 4 MG/ML CPJ (NOT FOR IM USE) IV ONE (14:45)
[2019-05-17 15:16] LABS: *AMPHETAMINES SCREEN URINE NEGATIVE (NEGATIVE); *BARBITURATES SCREEN URINE NEGATIVE (NEGATIVE); *BENZODIAZEPINES SCREEN URINE NEGATIVE (NEGATIVE); *COCAINE SCREEN URINE NEGATIVE (NEGATIVE); METHADONE URINE SCREEN NEGATIVE (NEGATIVE); OPIATES URINE SCREEN PRESUMTIVE POSITIVE (NEGATIVE)
[2019-05-17 15:17] LABS: CANNABINOID URINE SCREEN NEGATIVE (NEGATIVE); PHENCYCLIDINE URINE SCREEN NEGATIVE (NEGATIVE)
[2019-05-17] MEDS ORDERED: LEVOFLOXACIN 750MG PREMIX 150 ML IV ONE (16:30)
[2019-05-17] MEDS ORDERED: PIPERACILLIN/TAZ 3.375G PREMIX 50 ML IV ONE (16:30)
[2019-05-17] MEDS ORDERED: IPRATROPIUM/ALBUTEROL 0.5-3(2.5)MG/3ML NEB INH PRN (17:15)
[2019-05-17] MEDS ORDERED: MAGNESIUM/ALUMINUM HYDROXIDE/SIMETHICONE 30ML UDC PO PRN (17:15)
[2019-05-17] MEDS ORDERED: ACETAMINOPHEN 325MG TABLET PO PRN (17:15)
[2019-05-17] MEDS ORDERED: ONDANSETRON HCL 4MG/2ML INJ IV PRN (17:15)
[2019-05-17] MEDS ORDERED: CLONIDINE 0.1MG TABLET PO PRN (17:15)
[2019-05-17 18:35] LABS: CHLORIDE 109 mEq/L (98-107)
[2019-05-17 21:16] VITALS: BP 99/67
[2019-05-17 22:14] VITALS: BP 99/67
[2019-05-17] MEDS: HYDROCODONE/ACETAMINOPHEN 5/325MG TABLET PO PRN (22:51)
[2019-05-17] MEDS ORDERED: LOSA25TA3 PO (23:51)
[2019-05-17] MEDS ORDERED: COR3 PO (23:51)
[2019-05-17] MEDS ORDERED: ALPR0.5T PO (23:54)
[2019-05-18] VITALS (7 sets, daily range): BP systolic 96–116; BP diastolic 60–86
[2019-05-18 00:59] LABS: CREATINE KINASE 119 IU/L (39-308)
[2019-05-18 01:00] LABS: CREATINE KINASE MB FRACTION < 1.0 ng/mL (0.5-3.6)
[2019-05-18] MEDS ORDERED: AZITHROMYCIN 500 MG in DEXT 5% WATER 250 ML IV SCH (01:00)
[2019-05-18] MEDS: HYDROCODONE/ACETAMINOPHEN 5/325MG TABLET PO PRN ×2 (05:43→10:42)
[2019-05-18 08:43] LABS: EOSINOPHILS % 1.4 % (0.0-5.0); HEMATOCRIT. 42.2 % (42.0-52.0); LYMPHOCYTES % 16.5 % (20.0-50.0); MEAN CORPUSCULAR HEMOGLOBIN 28.2 pg (28.0-32.0); MEAN CORPUSCULAR VOLUME 85.2 fL (80.0-94.0); MEAN PLATELET VOLUME 9.9 fl (7.4-10.4); MONOCYTES % 8.4 % (2.0-8.0); NEUTROPHILS % 72.7 % (40.0-76.0); PLATELET 136 x1000/uL (130-400); RED BLOOD CELL COUNT 4.95 mill/uL (4.7-6.1); RED CELL DISTRIBUTION WIDTH 15.8 % (11.6-14.6)
[2019-05-18] MEDS ORDERED: CARVEDILOL 3.125 MG TABLET PO SCH (09:00)
[2019-05-18] MEDS ORDERED: MEDICATION NOT ON FORMULARY EA (Losartan Potassium (Cozaar) 25 MG) PO SCH (09:00)
[2019-05-18] MEDS ORDERED: BUPROPION HCL 450 MG PO SCH (09:00)
[2019-05-18 09:17] LABS: LDL CHOLESTEROL 104 mg/dL (5-100)
[2019-05-18 09:19] LABS: CREATINE KINASE 99 IU/L (39-308)
[2019-05-18 09:20] LABS: HDL CHOLESTEROL 34 mg/dL (40-59)
[2019-05-18] MEDS: ENOXAPARIN 30MG/0.3ML SYR SUBCUT SCH ×2 (10:07→21:07)
[2019-05-18] MEDS: FUROSEMIDE 40MG/4ML VIAL IV SCH ×2 (10:07→16:19)
[2019-05-18] MEDS ORDERED: REGADENOSON 0.4 MG/5 ML IV ONE (10:15)
[2019-05-18] MEDS: LOSARTAN POTASSIUM 25 MG TABLET PO SCH (10:40)
[2019-05-18] MEDS ORDERED: HYDROCODONE/ACETAMINOPHEN 10/325MG TABLET PO PRN (11:15)
[2019-05-18] MEDS ORDERED: PNEUMOCOCCAL 23-VAL P-SAC VAC 0.5 ML IM ONE (12:00)
[2019-05-18] MEDS ORDERED: MEDICATION NOT ON FORMULARY EA (Alprazolam (Xanax) 0.5 MG) PO SCH (12:00)
[2019-05-18] MEDS: ALPRAZOLAM 0.5 MG TABLET PO SCH (12:18)
[2019-05-18] MEDS: MORPHINE SULFATE 2 MG/ML CPJ (NOT FOR IM USE) IV PRN ×2 (14:30→22:32)
[2019-05-18] MEDS: POTASSIUM CHLORIDE 20MEQ TABLET SR PO SCH (16:19)
[2019-05-18] MEDS ORDERED: MEDICATION NOT ON FORMULARY EA (Olanzapine 20 MG) PO SCH (17:00)
[2019-05-18] MEDS ORDERED: OLANZAPINE 10MG TABLET PO SCH (17:00)
[2019-05-18] MEDS: BUPROPION HCL 150MG TABLET XL 24HR PO SCH (17:48)
[2019-05-18] MEDS ORDERED: CEFTRIAXONE 1 G PREMIX 50 ML IV SCH ×2 (20:00)
[2019-05-18] MEDS ORDERED: ATORVASTATIN CALCIUM 20MG TABLET PO SCH (21:00)
[2019-05-18] MEDS ORDERED: AZITHROMYCIN 500MG in DEXTROSE 5% WATER 250ML IV SCH (21:00)
[2019-05-18] MEDS: CARVEDILOL 3.125 MG TABLET PO SCH (21:08)
[2019-05-19] VITALS: BP 116/71
[2019-05-19 04:00] VITALS: BP_SYST 112; BP_SYST 118; BP_DIAS 70; BP_DIAS 79
[2019-05-19] MEDS: MORPHINE SULFATE 2 MG/ML CPJ (NOT FOR IM USE) IV PRN ×2 (07:13→15:21)
[2019-05-19 08:09] LABS: BASOPHILS % 0.5 % (0.0-2.0); EOSINOPHILS % 2.4 % (0.0-5.0); HEMATOCRIT. 45.1 % (42.0-52.0); HEMOGLOBIN. 14.7 g/dL (14.0-18.0); MEAN CORPUSCULAR HEMOGLOBIN 27.6 pg (28.0-32.0); MEAN CORPUSCULAR VOLUME 84.9 fL (80.0-94.0); MEAN PLATELET VOLUME 10.4 fl (7.4-10.4); MONOCYTES % 8.8 % (2.0-8.0); NEUTROPHILS % 74.3 % (40.0-76.0); PLATELET 139 x1000/uL (130-400); RED BLOOD CELL COUNT 5.31 mill/uL (4.7-6.1); RED CELL DISTRIBUTION WIDTH 15.7 % (11.6-14.6)
[2019-05-19 08:34] LABS: CHLORIDE 107 mEq/L (98-107)
[2019-05-19 08:57] LABS: CREATINE KINASE 65 IU/L (39-308)
[2019-05-19] MEDS: BUPROPION HCL 150MG TABLET XL 24HR PO SCH (09:00)
[2019-05-19 09:02] LABS: CREATINE KINASE MB FRACTION < 1.0 ng/mL (0.5-3.6)
[2019-05-19] MEDS ORDERED: REGADENOSON 0.4 MG/5 ML IV ONE (10:08)
[2019-05-19] MEDS: LOSARTAN POTASSIUM 25 MG TABLET PO SCH (11:51)
[2019-05-19] MEDS: POTASSIUM CHLORIDE 20MEQ TABLET SR PO SCH (11:51)
[2019-05-19] MEDS: ALPRAZOLAM 0.5 MG TABLET PO SCH (11:51)
[2019-05-19] MEDS: ENOXAPARIN 30MG/0.3ML SYR SUBCUT SCH (11:52)
[2019-05-19] MEDS: CARVEDILOL 3.125 MG TABLET PO SCH (11:52)
[2019-05-19] MEDS: FUROSEMIDE 40MG/4ML VIAL IV SCH (11:52)
[2019-05-19 12:00] VITALS: BP 121/88
[2019-05-19] MEDS ORDERED: ATOR20TA PO (16:02)
[2019-05-19] MEDS ORDERED: COR3 PO (16:02)
[2019-05-19 16:44] VITALS: BP 125/87
== END 2019-05-19 17:50 | disposition home or self-care (01) | DRG 133 ==
LOC: ER 11:52 → 5WST 16:52 → EDBEDREQ 16:59 → EDBEDREQTM 16:59 → ENRESERV 20:07
PROVIDERS: ADMIT Internal Medicine; ATTEND Internal Medicine
DX: J96.00 Acute respiratory failure, unspecified whether with hypoxia or hypercapnia (principal); I50.23 Acute on chronic systolic (congestive) heart failure; J12.9 Viral pneumonia, unspecified; I27.20 Pulmonary hypertension, unspecified; I42.0 Dilated cardiomyopathy; I11.0 Hypertensive heart disease with heart failure; F20.0 Paranoid schizophrenia; E78.5 Hyperlipidemia, unspecified; J06.9 Acute upper respiratory infection, unspecified; D72.821 Monocytosis (symptomatic); F41.8 Other specified anxiety disorders; I34.0 Nonrheumatic mitral (valve) insufficiency; F14.10 Cocaine abuse, uncomplicated; K59.00 Constipation, unspecified; Z82.49 Family history of ischemic heart disease and other diseases of the circulatory system; Z87.891 Personal history of nicotine dependence; Z79.899 Other long term (current) drug therapy
CPT/HCPCS: 36415; 71045; 73030; 74176; 78452; 80048; 80061; 80305; 80320; 82550; 82553; 83735; 83880; 84145; 84443; 84484; 85379; 93005; 93970; 96365; 96367; 96368; 96375; 99285; A9500; J0456; J0696; J1650; J1940; J1956; J2270; J2543; J2785; J7060; G0480

== ENCOUNTER 2019-07-26 18:29 | Inpatient (IN) | payer MEDICAID, OTHER ==
[~2019-07-26] VITALS: Ht 172.7 cm; Wt 103.4 kg
[~2019-07-26 18:29] MED LIST changes: +ALPR0.5T PO; +COR3 PO; +LOSA25TA3 PO
[2019-07-26] MEDS ORDERED: ASPIRIN 81MG TABLET PO ONE (19:15)
[2019-07-26 19:29] LABS: BASOPHILS % 0.5 % (0.0-2.0); EOSINOPHILS % 1.6 % (0.0-5.0); HEMATOCRIT. 44.9 % (42.0-52.0); HEMOGLOBIN. 14.7 g/dL (14.0-18.0); LYMPHOCYTES % 16.8 % (20.0-50.0); MEAN CORPUSCULAR HEMOGLOBIN 27.4 pg (28.0-32.0); MEAN CORPUSCULAR VOLUME 83.8 fL (80.0-94.0); MEAN PLATELET VOLUME 9.7 fl (7.4-10.4); MONOCYTES % 6.7 % (2.0-8.0); NEUTROPHILS % 74.4 % (40.0-76.0); PLATELET 170 x1000/uL (130-400); RED BLOOD CELL COUNT 5.36 mill/uL (4.7-6.1); RED CELL DISTRIBUTION WIDTH 16.3 % (11.6-14.6)
[2019-07-26 19:36] LABS: CHLORIDE 112 mEq/L (98-107)
[2019-07-26 20:13] LABS: CLARITY URINE CLEAR (CLEAR); COLOR URINE YELLOW (YELLOW); KETONES URINE NEGATIVE (NEGATIVE); LEUKOCYTE ESTERASE URINE NEGATIVE (NEGATIVE); NITRITE URINE NEGATIVE (NEGATIVE); OCCULT BLOOD URINE NEGATIVE (NEGATIVE); PH URINE 5.5 (4.5-8.0); PROTEIN URINE 1+ (NEGATIVE); SPECIFIC GRAVITY URINE 1.015 (1.005-1.030)
[2019-07-26] MEDS ORDERED: LEVOFLOXACIN 500MG PREMIX 100 ML IV ONE (21:45)
[2019-07-26] MEDS ORDERED: SODIUM CHLORIDE 0.9% 500 ML IV ONE (21:45)
[2019-07-26] MEDS ORDERED: KETOROLAC 30MG/ML VIAL IV ONE (22:15)
[2019-07-26] MEDS ORDERED: NITROGLYCERIN 0.4MG TABLET SL SL ONE (22:15)
[2019-07-26 23:40] VITALS: BP 144/99
[2019-07-26 23:45] VITALS: BP 144/99
[2019-07-27] MEDS: HYDROCODONE/ACETAMINOPHEN 5/325MG TABLET PO PRN (05:58)
[2019-07-27 08:00] VITALS: BP 128/97
[2019-07-27] MEDS: CARVEDILOL 3.125 MG TABLET PO SCH ×2 (08:30→20:27)
[2019-07-27] MEDS: ENOXAPARIN 30MG/0.3ML SYR SUBCUT SCH ×2 (08:31→20:29)
[2019-07-27] MEDS ORDERED: BUPROPION HCL 450 MG PO SCH (09:00)
[2019-07-27] MEDS ORDERED: LOSARTAN POTASSIUM 25 MG TABLET PO SCH (09:00)
[2019-07-27] MEDS ORDERED: FUROSEMIDE 40MG TABLET PO SCH (09:00)
[2019-07-27 09:33] LABS: *BARBITURATES SCREEN URINE NEGATIVE (NEGATIVE); *BENZODIAZEPINES SCREEN URINE NEGATIVE (NEGATIVE); *COCAINE SCREEN URINE PRESUMTIVE POSITIVE (NEGATIVE)
[2019-07-27 09:34] LABS: *AMPHETAMINES SCREEN URINE NEGATIVE (NEGATIVE); CANNABINOID URINE SCREEN PRESUMTIVE POSITIVE (NEGATIVE); METHADONE URINE SCREEN NEGATIVE (NEGATIVE); OPIATES URINE SCREEN PRESUMTIVE POSITIVE (NEGATIVE); PHENCYCLIDINE URINE SCREEN NEGATIVE (NEGATIVE)
[2019-07-27] MEDS: MORPHINE SULFATE 2 MG/ML CPJ (NOT FOR IM USE) IV PRN ×2 (09:50→16:20)
[2019-07-27 09:52] LABS: CREATINE KINASE 131 IU/L (39-308)
[2019-07-27 09:53] LABS: HDL CHOLESTEROL 38 mg/dL (40-59)
[2019-07-27 09:54] LABS: LDL CHOLESTEROL 125 mg/dL (5-100)
[2019-07-27 09:57] LABS: CREATINE KINASE MB FRACTION 1.4 ng/mL (0.5-3.6)
[2019-07-27] MEDS ORDERED: IPRATROPIUM/ALBUTEROL 0.5-3(2.5)MG/3ML NEB HHN PRN (10:00)
[2019-07-27] MEDS: ALPRAZOLAM 0.5 MG TABLET PO SCH (11:42)
[2019-07-27 12:00] VITALS: BP 128/97
[2019-07-27] MEDS: BUPROPION HCL 150MG TABLET XL 24HR PO SCH (12:03)
[2019-07-27] MEDS ORDERED: DIGO125T82 PO (13:03)
[2019-07-27] MEDS ORDERED: ACETAMINOPHEN COD PO (13:03)
[2019-07-27 16:00] VITALS: BP 130/94
[2019-07-27 16:02] LABS: CREATINE KINASE 123 IU/L (39-308)
[2019-07-27 16:03] LABS: CREATINE KINASE MB FRACTION 1.5 ng/mL (0.5-3.6)
[2019-07-27] MEDS: OLANZAPINE 10MG TABLET PO SCH (16:19)
[2019-07-27] MEDS: FUROSEMIDE 40MG/4ML VIAL IVP SCH (16:19)
[2019-07-27] MEDS ORDERED: MEDICATION NOT ON FORMULARY EA (Olanzapine 20 MG) PO SCH (17:00)
[2019-07-27 20:00] VITALS: BP 133/94
[2019-07-27] MEDS: ATORVASTATIN CALCIUM 20MG TABLET PO SCH (20:28)
[2019-07-27] MEDS: LOSARTAN POTASSIUM 50 MG TABLET PO SCH (20:28)
[2019-07-28] VITALS: BP 116/71
[2019-07-28 04:00] VITALS: BP 116/81
[2019-07-28] MEDS: FUROSEMIDE 40MG/4ML VIAL IVP SCH ×2 (06:27→17:47)
[2019-07-28] MEDS: MORPHINE SULFATE 2 MG/ML CPJ (NOT FOR IM USE) IV PRN ×2 (07:05→18:29)
[2019-07-28] MEDS: LOSARTAN POTASSIUM 50 MG TABLET PO SCH ×2 (09:00→22:01)
[2019-07-28] MEDS: ENOXAPARIN 30MG/0.3ML SYR SUBCUT SCH ×2 (09:00→22:01)
[2019-07-28] MEDS: BUPROPION HCL 150MG TABLET XL 24HR PO SCH (09:00)
[2019-07-28 09:15] LABS: BASOPHILS % 0.6 % (0.0-2.0); HEMATOCRIT. 46.5 % (42.0-52.0); HEMOGLOBIN. 15.4 g/dL (14.0-18.0); LYMPHOCYTES % 17.9 % (20.0-50.0); MEAN CORPUSCULAR HEMOGLOBIN 27.7 pg (28.0-32.0); MEAN CORPUSCULAR VOLUME 83.9 fL (80.0-94.0); MEAN PLATELET VOLUME 10.2 fl (7.4-10.4); MONOCYTES % 6.5 % (2.0-8.0); PLATELET 161 x1000/uL (130-400); RED BLOOD CELL COUNT 5.54 mill/uL (4.7-6.1); RED CELL DISTRIBUTION WIDTH 16.5 % (11.6-14.6)
[2019-07-28 09:39] LABS: CHLORIDE 110 mEq/L (98-107)
[2019-07-28 09:44] LABS: PHOSPHORUS 3.6 mg/dL (2.5-4.9)
[2019-07-28 11:53] VITALS: BP 110/84
[2019-07-28] MEDS: ALPRAZOLAM 0.5 MG TABLET PO SCH (11:53)
[2019-07-28] MEDS: HYDROCODONE/ACETAMINOPHEN 5/325MG TABLET PO PRN (12:01)
[2019-07-28] MEDS: CARVEDILOL 6.25 MG TABLET PO SCH ×2 (12:03→22:00)
[2019-07-28 16:00] VITALS: BP 114/81
[2019-07-28] MEDS: OLANZAPINE 10MG TABLET PO SCH (17:47)
[2019-07-28 20:00] VITALS: BP 120/76
[2019-07-28] MEDS: ATORVASTATIN CALCIUM 20MG TABLET PO SCH (22:00)
[2019-07-29] VITALS: BP 101/50
[2019-07-29 04:00] VITALS: BP 111/70
[2019-07-29] MEDS: FUROSEMIDE 40MG/4ML VIAL IVP SCH ×2 (06:15→18:03)
[2019-07-29 07:37] LABS: CHLORIDE 107 mEq/L (98-107)
[2019-07-29 07:50] LABS: BASOPHILS % 0.8 % (0.0-2.0); EOSINOPHILS % 2.3 % (0.0-5.0); HEMATOCRIT. 45.5 % (42.0-52.0); LYMPHOCYTES % 13.5 % (20.0-50.0); MEAN CORPUSCULAR HEMOGLOBIN 27.6 pg (28.0-32.0); MEAN CORPUSCULAR VOLUME 83.4 fL (80.0-94.0); MEAN PLATELET VOLUME 10.2 fl (7.4-10.4); MONOCYTES % 7.3 % (2.0-8.0); NEUTROPHILS % 76.1 % (40.0-76.0); PLATELET 165 x1000/uL (130-400); RED BLOOD CELL COUNT 5.46 mill/uL (4.7-6.1); RED CELL DISTRIBUTION WIDTH 16.6 % (11.6-14.6)
[2019-07-29 08:00] VITALS: BP 122/89
[2019-07-29] MEDS: BUPROPION HCL 150MG TABLET XL 24HR PO SCH (09:24)
[2019-07-29] MEDS: LOSARTAN POTASSIUM 50 MG TABLET PO SCH (09:24)
[2019-07-29] MEDS: CARVEDILOL 6.25 MG TABLET PO SCH (09:24)
[2019-07-29] MEDS: ENOXAPARIN 30MG/0.3ML SYR SUBCUT SCH (09:25)
[2019-07-29] MEDS: MORPHINE SULFATE 2 MG/ML CPJ (NOT FOR IM USE) IV PRN (09:26)
[2019-07-29] MEDS: ALPRAZOLAM 0.5 MG TABLET PO SCH (11:35)
[2019-07-29 12:00] VITALS: BP 91/57
[2019-07-29 16:00] VITALS: BP 110/72
[2019-07-29] MEDS ORDERED: LOSA50TA3 PO (16:40)
[2019-07-29] MEDS ORDERED: COR6 PO (16:40)
[2019-07-29] MEDS: OLANZAPINE 10MG TABLET PO SCH (17:00)
[2019-07-29 18:47] VITALS: BP 110/72
== END 2019-07-29 20:30 | disposition home or self-care (01) | DRG 133 ==
LOC: ER 18:29 → ENRESERV 22:39 → 8WST 23:38
PROVIDERS: ADMIT Internal Medicine; ATTEND Internal Medicine
DX: J96.00 Acute respiratory failure, unspecified whether with hypoxia or hypercapnia (principal); I50.23 Acute on chronic systolic (congestive) heart failure; I27.20 Pulmonary hypertension, unspecified; I42.9 Cardiomyopathy, unspecified; F20.0 Paranoid schizophrenia; J68.0 Bronchitis and pneumonitis due to chemicals, gases, fumes and vapors; T59.91XA Toxic effect of unspecified gases, fumes and vapors, accidental (unintentional), initial encounter; I11.0 Hypertensive heart disease with heart failure; E78.5 Hyperlipidemia, unspecified; F17.210 Nicotine dependence, cigarettes, uncomplicated; F12.90 Cannabis use, unspecified, uncomplicated; F14.90 Cocaine use, unspecified, uncomplicated; Z79.899 Other long term (current) drug therapy; Z91.14 Patient's other noncompliance with medication regimen; Y92.89 Other specified places as the place of occurrence of the external cause; Z71.51 Drug abuse counseling and surveillance of drug abuser
CPT/HCPCS: 36415; 71045; 80048; 80061; 80305; 81003; 82550; 82553; 83605; 83735; 83880; 84100; 84145; 84484; 93005; 93970; 96365; 96375; 99291; J1650; J1885; J1940; J1956; J2270; J7040

== ENCOUNTER 2019-10-12 13:03 | Inpatient (IN) | payer MEDICAID ==
[~2019-10-12] VITALS: Ht 172.7 cm; Wt 102.5 kg
[~2019-10-12 13:03] MED LIST changes: +ACETAMINOPHEN COD PO; -COR3 PO; +COR6 PO; -LOSA25TA3 PO; +LOSA50TA3 PO
[2019-10-12] MEDS ORDERED: ASPIRIN 81MG TABLET PO ONE (13:30)
[2019-10-12] MEDS ORDERED: FUROSEMIDE 40MG/4ML VIAL IV ONE (13:30)
[2019-10-12] MEDS: NITROGLYCERIN 0.4MG TABLET SL SL PRN ×3 (13:42→13:56)
[2019-10-12 13:59] LABS: BASOPHILS % 0.8 % (0.0-2.0); EOSINOPHILS % 1.5 % (0.0-5.0); HEMATOCRIT. 43.8 % (42.0-52.0); HEMOGLOBIN. 14.7 g/dL (14.0-18.0); LYMPHOCYTES % 15.1 % (20.0-50.0); MEAN CORPUSCULAR HEMOGLOBIN 27.2 pg (28.0-32.0); MEAN CORPUSCULAR VOLUME 80.7 fL (80.0-94.0); MONOCYTES % 8.4 % (2.0-8.0); NEUTROPHILS % 74.2 % (40.0-76.0); RED BLOOD CELL COUNT 5.42 mill/uL (4.7-6.1); RED CELL DISTRIBUTION WIDTH 16.9 % (11.6-14.6)
[2019-10-12 14:05] LABS: CHLORIDE 112 mEq/L (98-107)
[2019-10-12 14:10] LABS: ETHANOL BLOOD < 10 mg/dL
[2019-10-12 14:31] LABS: CLARITY URINE CLEAR (CLEAR); KETONES URINE NEGATIVE (NEGATIVE); LEUKOCYTE ESTERASE URINE NEGATIVE (NEGATIVE); NITRITE URINE NEGATIVE (NEGATIVE); OCCULT BLOOD URINE NEGATIVE (NEGATIVE); PROTEIN URINE NEGATIVE (NEGATIVE); SPECIFIC GRAVITY URINE 1.006 (1.005-1.030); UROBILINOGEN URINE 0.2 E.U./dL (0.2-1.0)
[2019-10-12 14:32] LABS: COLOR URINE PALE YELLOW (YELLOW)
[2019-10-12 14:47] LABS: *AMPHETAMINES SCREEN URINE NEGATIVE (NEGATIVE); *BARBITURATES SCREEN URINE NEGATIVE (NEGATIVE); *BENZODIAZEPINES SCREEN URINE NEGATIVE (NEGATIVE); *COCAINE SCREEN URINE NEGATIVE (NEGATIVE)
[2019-10-12 14:48] LABS: CANNABINOID URINE SCREEN PRESUMTIVE POSITIVE (NEGATIVE); METHADONE URINE SCREEN NEGATIVE (NEGATIVE); OPIATES URINE SCREEN NEGATIVE (NEGATIVE); PHENCYCLIDINE URINE SCREEN NEGATIVE (NEGATIVE)
[2019-10-12 15:25] LABS: MEAN PLATELET VOLUME 10.4 fl (7.4-10.4); PLATELET 156 x1000/uL (130-400)
[2019-10-12] MEDS ORDERED: ACETAMINOPHEN WITH CODEINE 300/30MG TABLET PO ONE (15:30)
[2019-10-12] MEDS: MORPHINE SULFATE 4 MG/ML CPJ (NOT FOR IM USE) IV PRN (19:01)
[2019-10-12] MEDS ORDERED: ACETAMINOPHEN 325MG TABLET PO PRN (22:00)
[2019-10-12] MEDS ORDERED: ONDANSETRON HCL 4MG/2ML INJ IV PRN (22:00)
[2019-10-12] MEDS ORDERED: CLONIDINE 0.1MG TABLET PO PRN (22:00)
[2019-10-12] MEDS ORDERED: FUROSEMIDE 40MG/4ML VIAL IVP NR (22:15)
[2019-10-12 23:40] VITALS: BP 121/86
[2019-10-13 00:03] LABS: CREATINE KINASE 161 IU/L (39-308)
[2019-10-13 00:04] LABS: CREATINE KINASE MB FRACTION < 1.0 ng/mL (0.5-3.6)
[2019-10-13] MEDS: MORPHINE SULFATE 4 MG/ML CPJ (NOT FOR IM USE) IV PRN ×5 (00:41→20:10)
[2019-10-13 04:00] VITALS: BP 140/91
[2019-10-13] MEDS: IPRATROPIUM/ALBUTEROL 0.5-3(2.5)MG/3ML NEB HHN SCH ×5 (04:57→21:10)
[2019-10-13 07:04] LABS: BASOPHILS % 0.6 % (0.0-2.0); EOSINOPHILS % 1.9 % (0.0-5.0); HEMATOCRIT. 45.3 % (42.0-52.0); HEMOGLOBIN. 15.4 g/dL (14.0-18.0); LYMPHOCYTES % 10.3 % (20.0-50.0); MEAN CORPUSCULAR HEMOGLOBIN 27.6 pg (28.0-32.0); MEAN CORPUSCULAR VOLUME 80.8 fL (80.0-94.0); MONOCYTES % 9.1 % (2.0-8.0); NEUTROPHILS % 78.1 % (40.0-76.0); RED CELL DISTRIBUTION WIDTH 16.9 % (11.6-14.6)
[2019-10-13 07:12] LABS: CHLORIDE 106 mEq/L (98-107)
[2019-10-13 07:23] LABS: CREATINE KINASE 129 IU/L (39-308)
[2019-10-13 07:25] LABS: CREATINE KINASE MB FRACTION < 1.0 ng/mL (0.5-3.6)
[2019-10-13 08:00] VITALS: BP 125/86
[2019-10-13] MEDS: ENOXAPARIN 30MG/0.3ML SYR SUBCUT SCH ×2 (08:31→20:11)
[2019-10-13] MEDS: FUROSEMIDE 40MG/4ML VIAL IVP SCH ×2 (08:31→16:49)
[2019-10-13 08:48] LABS: MEAN PLATELET VOLUME 10.3 fl (7.4-10.4); PLATELET 149 x1000/uL (130-400)
[2019-10-13] MEDS: BUPROPION HCL 150MG TABLET XL 24HR PO SCH (10:52)
[2019-10-13] MEDS: ALPRAZOLAM 0.5 MG TABLET PO SCH (12:36)
[2019-10-13] MEDS ORDERED: BENZONATATE 100MG CAPSULE PO PRN (14:15)
[2019-10-13 16:00] VITALS: BP 116/65
[2019-10-13 20:00] VITALS: BP 105/52
[2019-10-13] MEDS: ATORVASTATIN CALCIUM 40MG TABLET PO SCH (20:10)
[2019-10-13] MEDS: OLANZAPINE 10MG TABLET PO SCH (20:10)
[2019-10-13] MEDS: LOSARTAN POTASSIUM 50 MG TABLET PO SCH (20:11)
[2019-10-13] MEDS: CARVEDILOL 6.25 MG TABLET PO SCH (20:11)
[2019-10-14] VITALS: BP 113/69
[2019-10-14] MEDS: DOCUSATE SODIUM 100MG CAPSULE PO PRN ×2 (00:09→20:20)
[2019-10-14] MEDS: MORPHINE SULFATE 4 MG/ML CPJ (NOT FOR IM USE) IV PRN ×5 (00:10→20:23)
[2019-10-14] MEDS: IPRATROPIUM/ALBUTEROL 0.5-3(2.5)MG/3ML NEB HHN SCH ×7 (01:14→21:13)
[2019-10-14 04:00] VITALS: BP 103/60
[2019-10-14 07:35] LABS: BASOPHILS % 0.6 % (0.0-2.0); EOSINOPHILS % 1.6 % (0.0-5.0); HEMATOCRIT. 46.4 % (42.0-52.0); HEMOGLOBIN. 15.3 g/dL (14.0-18.0); LYMPHOCYTES % 9.6 % (20.0-50.0); MEAN CORPUSCULAR HEMOGLOBIN 26.7 pg (28.0-32.0); MEAN CORPUSCULAR VOLUME 81.1 fL (80.0-94.0); MEAN PLATELET VOLUME 10.4 fl (7.4-10.4); MONOCYTES % 9.2 % (2.0-8.0); PLATELET 152 x1000/uL (130-400); RED BLOOD CELL COUNT 5.72 mill/uL (4.7-6.1); RED CELL DISTRIBUTION WIDTH 16.8 % (11.6-14.6)
[2019-10-14 08:00] VITALS: BP 109/75
[2019-10-14 08:02] LABS: CHLORIDE 103 mEq/L (98-107)
[2019-10-14] MEDS: LOSARTAN POTASSIUM 50 MG TABLET PO SCH ×2 (08:57→20:20)
[2019-10-14] MEDS: ENOXAPARIN 30MG/0.3ML SYR SUBCUT SCH ×2 (08:59→20:22)
[2019-10-14] MEDS: BUPROPION HCL 150MG TABLET XL 24HR PO SCH (08:59)
[2019-10-14] MEDS: FUROSEMIDE 40MG/4ML VIAL IVP SCH ×2 (08:59→16:23)
[2019-10-14] MEDS: CARVEDILOL 6.25 MG TABLET PO SCH ×2 (09:00→20:21)
[2019-10-14 11:54] VITALS: BP 112/71
[2019-10-14] MEDS: ALPRAZOLAM 0.5 MG TABLET PO SCH (12:10)
[2019-10-14 16:00] VITALS: BP 110/71
[2019-10-14 19:56] LABS: PLATELET ESTIMATE NORMAL
[2019-10-14 20:00] VITALS: BP 112/77
[2019-10-14] MEDS: OLANZAPINE 10MG TABLET PO SCH (20:21)
[2019-10-14] MEDS: ATORVASTATIN CALCIUM 40MG TABLET PO SCH (20:22)
[2019-10-15] VITALS: BP 124/67
[2019-10-15] MEDS: IPRATROPIUM/ALBUTEROL 0.5-3(2.5)MG/3ML NEB HHN SCH ×4 (01:15→12:30)
[2019-10-15 04:00] VITALS: BP 129/89
[2019-10-15] MEDS: MORPHINE SULFATE 4 MG/ML CPJ (NOT FOR IM USE) IV PRN ×2 (05:17→09:41)
[2019-10-15 06:25] LABS: CHLORIDE 102 mEq/L (98-107)
[2019-10-15 08:00] VITALS: BP 109/79
[2019-10-15] MEDS: FUROSEMIDE 40MG/4ML VIAL IVP SCH (08:46)
[2019-10-15] MEDS: LOSARTAN POTASSIUM 50 MG TABLET PO SCH (08:47)
[2019-10-15] MEDS: BUPROPION HCL 150MG TABLET XL 24HR PO SCH (08:47)
[2019-10-15] MEDS: CARVEDILOL 6.25 MG TABLET PO SCH (08:47)
[2019-10-15] MEDS: ENOXAPARIN 30MG/0.3ML SYR SUBCUT SCH (08:51)
[2019-10-15] MEDS: ALPRAZOLAM 0.5 MG TABLET PO SCH (11:46)
[2019-10-15 12:00] VITALS: BP 102/72
[2019-10-15 13:55] VITALS: BP 105/69
== END 2019-10-15 15:20 | disposition home or self-care (01) | DRG 816 ==
LOC: ER 13:03 → 7WST 14:43 → EDBEDREQ 15:28 → ENRESERV 22:28
PROVIDERS: ADMIT Internal Medicine; ATTEND Internal Medicine
DX: T40.5X1A Poisoning by cocaine, accidental (unintentional), initial encounter (principal); I50.23 Acute on chronic systolic (congestive) heart failure; E87.8 Other disorders of electrolyte and fluid balance, not elsewhere classified; I42.0 Dilated cardiomyopathy; R65.10 Systemic inflammatory response syndrome (SIRS) of non-infectious origin without acute organ dysfunction; I11.0 Hypertensive heart disease with heart failure; I73.9 Peripheral vascular disease, unspecified; E66.9 Obesity, unspecified; E78.5 Hyperlipidemia, unspecified; F99 Mental disorder, not otherwise specified; F41.9 Anxiety disorder, unspecified; F12.90 Cannabis use, unspecified, uncomplicated; Z87.891 Personal history of nicotine dependence; Z82.49 Family history of ischemic heart disease and other diseases of the circulatory system; Z79.899 Other long term (current) drug therapy; Z71.3 Dietary counseling and surveillance; Z68.34 Body mass index [BMI] 34.0-34.9, adult
CPT/HCPCS: 36415; 71045; 80048; 80053; 80305; 80320; 81003; 82550; 82553; 83880; 84145; 84484; 85025; 93005; 93970; 94640; 96372; 96374; 96376; 99291; J1650; J1940; J2270; G0480

== ENCOUNTER 2020-01-07 14:22 | Inpatient (IN) | payer MEDICAID ==
[~2020-01-07] VITALS: Ht 172.7 cm; Wt 104.8 kg
[2020-01-07 18:40] LABS: BASOPHILS % 0.6 % (0.0-2.0); HEMATOCRIT. 50.1 % (42.0-52.0); HEMOGLOBIN. 16.8 g/dL (14.0-18.0); LYMPHOCYTES % 17.1 % (20.0-50.0); MEAN CORPUSCULAR HEMOGLOBIN 28.3 pg (28.0-32.0); MEAN CORPUSCULAR VOLUME 84.5 fL (80.0-94.0); MEAN PLATELET VOLUME 11.1 fl (7.4-10.4); MONOCYTES % 8.1 % (2.0-8.0); NEUTROPHILS % 73.2 % (40.0-76.0); PLATELET 169 x1000/uL (130-400); RED BLOOD CELL COUNT 5.93 mill/uL (4.7-6.1); RED CELL DISTRIBUTION WIDTH 15.6 % (11.6-14.6)
[2020-01-07 18:47] LABS: INR 1.1; PROTHROMBIN TIME 11.7 sec (9.6-11.0)
[2020-01-07 18:48] LABS: CHLORIDE 110 mEq/L (98-107)
[2020-01-07] MEDS ORDERED: ACETAMINOPHEN 325MG TABLET PO ONE (21:00)
[2020-01-07 22:30] VITALS: BP 127/85
[2020-01-07] MEDS ORDERED: CLONIDINE 0.1MG TABLET PO PRN (23:15)
[2020-01-07] MEDS ORDERED: ENOXAPARIN 40MG/0.4ML SYR SUBCUT SCH (23:15)
[2020-01-07] MEDS ORDERED: GUAIFENESIN 200MG/10ML SUGAR FREE UDC PO PRN (23:15)
[2020-01-07] MEDS ORDERED: ONDANSETRON HCL 4MG/2ML INJ IV PRN (23:15)
[2020-01-07] MEDS ORDERED: ACETAMINOPHEN 325MG TABLET PO PRN (23:15)
[2020-01-07] MEDS: HYDROCODONE/ACETAMINOPHEN 5/325MG TABLET PO PRN (23:55)
[2020-01-08 04:00] VITALS: BP 124/76
[2020-01-08] MEDS: HYDROCODONE/ACETAMINOPHEN 5/325MG TABLET PO PRN ×4 (04:03→21:51)
[2020-01-08 06:27] LABS: BASOPHILS % 0.8 % (0.0-2.0); EOSINOPHILS % 1.3 % (0.0-5.0); HEMATOCRIT. 46.6 % (42.0-52.0); HEMOGLOBIN. 16.1 g/dL (14.0-18.0); LYMPHOCYTES % 16.9 % (20.0-50.0); MEAN CORPUSCULAR HEMOGLOBIN 28.9 pg (28.0-32.0); MEAN CORPUSCULAR VOLUME 83.9 fL (80.0-94.0); RED BLOOD CELL COUNT 5.55 mill/uL (4.7-6.1); RED CELL DISTRIBUTION WIDTH 15.7 % (11.6-14.6)
[2020-01-08 06:38] LABS: CHLORIDE 109 mEq/L (98-107)
[2020-01-08 06:47] LABS: CREATINE KINASE 274 IU/L (39-308)
[2020-01-08 06:50] LABS: CREATINE KINASE MB FRACTION 1.5 ng/mL (0.5-3.6)
[2020-01-08 08:30] VITALS: BP 125/80
[2020-01-08] MEDS: ENOXAPARIN 30MG/0.3ML SYR SUBCUT SCH ×2 (10:01→21:53)
[2020-01-08] MEDS: CARVEDILOL 6.25 MG TABLET PO SCH ×2 (10:02→21:50)
[2020-01-08] MEDS: LOSARTAN POTASSIUM 50 MG TABLET PO SCH ×2 (10:02→21:50)
[2020-01-08 10:54] LABS: MEAN PLATELET VOLUME 10.3 fl (7.4-10.4); PLATELET 127 x1000/uL (130-400)
[2020-01-08 10:56] LABS: PLATELET ESTIMATE SLIGHTLY DECREASED
[2020-01-08 12:00] VITALS: BP 110/64
[2020-01-08] MEDS: ALPRAZOLAM 0.5 MG TABLET PO SCH (12:00)
[2020-01-08 16:30] VITALS: BP 128/72
[2020-01-08 20:00] VITALS: BP 119/81
[2020-01-08 21:25] LABS: CREATINE KINASE 250 IU/L (39-308)
[2020-01-08 21:28] LABS: CREATINE KINASE MB FRACTION 1.4 ng/mL (0.5-3.6)
[2020-01-08] MEDS ORDERED: FUROSEMIDE 40MG/4ML VIAL IVP NR (21:30)
[2020-01-08] MEDS: ATORVASTATIN CALCIUM 40MG TABLET PO SCH (21:53)
[2020-01-09] VITALS: BP 104/66
[2020-01-09] MEDS: HYDROCODONE/ACETAMINOPHEN 5/325MG TABLET PO PRN ×3 (02:06→21:00)
[2020-01-09 08:00] VITALS: BP 101/66
[2020-01-09] MEDS: CARVEDILOL 6.25 MG TABLET PO SCH ×2 (09:43→20:57)
[2020-01-09] MEDS: ENOXAPARIN 30MG/0.3ML SYR SUBCUT SCH ×2 (09:44→20:58)
[2020-01-09] MEDS: LOSARTAN POTASSIUM 50 MG TABLET PO SCH ×2 (09:44→20:57)
[2020-01-09] MEDS: ALPRAZOLAM 0.5 MG TABLET PO SCH (13:15)
[2020-01-09] MEDS: FUROSEMIDE 40MG/4ML VIAL IVP SCH (13:15)
[2020-01-09] MEDS: SPIRONOLACTONE 25MG TABLET PO SCH (13:15)
[2020-01-09] MEDS ORDERED: MORPHINE SULFATE 2 MG/ML CPJ (NOT FOR IM USE) IV SCH (13:45)
[2020-01-09 16:00] VITALS: BP_SYST 101; BP_SYST 107; BP_DIAS 61; BP_DIAS 66
[2020-01-09 20:00] VITALS: BP 109/65
[2020-01-09] MEDS: ATORVASTATIN CALCIUM 40MG TABLET PO SCH (20:58)
[2020-01-10] VITALS: BP 128/65
[2020-01-10] MEDS: HYDROCODONE/ACETAMINOPHEN 5/325MG TABLET PO PRN ×3 (00:43→08:58)
[2020-01-10 04:00] VITALS: BP 108/62
[2020-01-10 08:00] VITALS: BP 118/76
[2020-01-10] MEDS: CARVEDILOL 6.25 MG TABLET PO SCH (08:56)
[2020-01-10] MEDS: FUROSEMIDE 40MG/4ML VIAL IVP SCH (08:56)
[2020-01-10] MEDS: LOSARTAN POTASSIUM 50 MG TABLET PO SCH (08:56)
[2020-01-10] MEDS: ENOXAPARIN 30MG/0.3ML SYR SUBCUT SCH (08:57)
[2020-01-10] MEDS: SPIRONOLACTONE 25MG TABLET PO SCH (08:57)
[2020-01-10] MEDS ORDERED: BUPROPION HCL 150MG TABLET XL 24HR PO SCH (10:30)
[2020-01-10 12:00] VITALS: BP 110/70
[2020-01-10] MEDS: ALPRAZOLAM 0.5 MG TABLET PO SCH (12:31)
== END 2020-01-10 17:05 | disposition home or self-care (01) | DRG 194 ==
LOC: ER 14:22 → 7EST 20:03 → EDBEDREQTM 20:05 → EDBEDREQ 20:05 → ENRESERV 21:47 → 6WST 01-09 22:34
PROVIDERS: ADMIT Internal Medicine; ATTEND Internal Medicine
DX: I11.0 Hypertensive heart disease with heart failure (principal); D57.1 Sickle-cell disease without crisis; F17.200 Nicotine dependence, unspecified, uncomplicated; F12.90 Cannabis use, unspecified, uncomplicated; E78.5 Hyperlipidemia, unspecified; F14.20 Cocaine dependence, uncomplicated; D72.810 Lymphocytopenia; I50.21 Acute systolic (congestive) heart failure; R06.89 Other abnormalities of breathing; Z79.84 Long term (current) use of oral hypoglycemic drugs; Z79.1 Long term (current) use of non-steroidal anti-inflammatories (NSAID); Z71.51 Drug abuse counseling and surveillance of drug abuser
CPT/HCPCS: 36415; 71045; 80048; 80053; 82550; 82553; 83880; 84484; 85025; 87635; 87804; 93005; 99291; J1650; J1940; J2270

== ENCOUNTER 2020-04-24 12:46 | Inpatient (IN) | payer MEDICAID ==
[~2020-04-24] VITALS: Ht 172.7 cm; Wt 103.0 kg
[~2020-04-24 12:46] MED LIST changes: -BUPR300T52 PO
[2020-04-24 14:43] LABS: BASOPHILS % 0.5 % (0.0-2.0); EOSINOPHILS % 0.8 % (0.0-5.0); HEMATOCRIT. 44.9 % (42.0-52.0); HEMOGLOBIN. 15.4 g/dL (14.0-18.0); LYMPHOCYTES % 16.1 % (20.0-50.0); MEAN CORPUSCULAR HEMOGLOBIN 30.3 pg (28.0-32.0); MEAN CORPUSCULAR VOLUME 88.5 fL (80.0-94.0); MONOCYTES % 8.7 % (2.0-8.0); NEUTROPHILS % 73.9 % (40.0-76.0); RED BLOOD CELL COUNT 5.08 mill/uL (4.7-6.1); RED CELL DISTRIBUTION WIDTH 14.3 % (11.6-14.6)
[2020-04-24 14:49] LABS: CHLORIDE 112 mEq/L (98-107)
[2020-04-24 15:18] LABS: MEAN PLATELET VOLUME 10.5 fl (7.4-10.4); PLATELET 135 x1000/uL (130-400)
[2020-04-24] MEDS ORDERED: FUROSEMIDE 40MG/4ML VIAL IVP ONE (15:30)
[2020-04-24] MEDS ORDERED: ENALAPRIL 1.25MG/ML VIAL 1ML IV NR (15:30)
[2020-04-24] MEDS ORDERED: ENALAPRIL 2.5MG/2ML VIAL 2ML IV ONE (15:30)
[2020-04-24] MEDS ORDERED: MORPHINE SULFATE 4 MG/ML CPJ (NOT FOR IM USE) IV ONE (17:15)
[2020-04-24] MEDS ORDERED: LORAZEPAM 0.5MG TABLET PO PRN (19:00)
[2020-04-24] MEDS ORDERED: CLONIDINE 0.1MG TABLET PO PRN (19:00)
[2020-04-24] MEDS ORDERED: IPRATROPIUM/ALBUTEROL 0.5-3(2.5)MG/3ML NEB HHN PRN (19:00)
[2020-04-24] MEDS ORDERED: ONDANSETRON HCL 4MG/2ML INJ IV PRN (19:00)
[2020-04-24] MEDS ORDERED: ACETAMINOPHEN 325MG TABLET PO PRN ×2 (19:00)
[2020-04-24] MEDS ORDERED: DOCUSATE SODIUM 100MG CAPSULE PO PRN (19:00)
[2020-04-24] MEDS ORDERED: MAGNESIUM/ALUMINUM HYDROXIDE/SIMETHICONE 30ML UDC PO PRN (19:00)
[2020-04-24] MEDS ORDERED: COLCHICINE 0.6MG TABLET PO NR (19:30)
[2020-04-24 20:45] VITALS: BP 119/77
[2020-04-24] MEDS: ATORVASTATIN CALCIUM 40MG TABLET PO SCH (21:02)
[2020-04-24] MEDS: LOSARTAN POTASSIUM 50 MG TABLET PO SCH (21:03)
[2020-04-24] MEDS: HYDROMORPHONE HCL/PF 2MG/ML CPJ IV PRN (21:04)
[2020-04-24 21:23] VITALS: BP 119/77
[2020-04-25] VITALS: BP 116/75
[2020-04-25] MEDS: HYDROCODONE/ACETAMINOPHEN 5/325MG TABLET PO PRN ×4 (00:30→18:09)
[2020-04-25 04:00] VITALS: BP 130/81
[2020-04-25] MEDS: HYDROMORPHONE HCL/PF 2MG/ML CPJ IV PRN ×4 (04:00→15:49)
[2020-04-25 06:28] LABS: BASOPHILS % 0.7 % (0.0-2.0); EOSINOPHILS % 1.1 % (0.0-5.0); HEMATOCRIT. 46.3 % (42.0-52.0); HEMOGLOBIN. 15.5 g/dL (14.0-18.0); LYMPHOCYTES % 19.9 % (20.0-50.0); MEAN CORPUSCULAR HEMOGLOBIN 29.3 pg (28.0-32.0); MEAN CORPUSCULAR VOLUME 87.5 fL (80.0-94.0); MONOCYTES % 9.1 % (2.0-8.0); NEUTROPHILS % 69.2 % (40.0-76.0); PLATELET 136 x1000/uL (130-400); RED BLOOD CELL COUNT 5.28 mill/uL (4.7-6.1); RED CELL DISTRIBUTION WIDTH 14.1 % (11.6-14.6)
[2020-04-25 06:34] LABS: CHLORIDE 108 mEq/L (98-107)
[2020-04-25] MEDS ORDERED: FUROSEMIDE 40MG/4ML VIAL IVP SCH (07:15)
[2020-04-25 08:00] VITALS: BP 114/87
[2020-04-25] MEDS ORDERED: COLCHICINE 0.6MG TABLET PO SCH (09:00)
[2020-04-25] MEDS: LOSARTAN POTASSIUM 50 MG TABLET PO SCH ×3 (09:30→22:30)
[2020-04-25] MEDS: FUROSEMIDE 40MG TABLET PO SCH ×2 (09:37→17:44)
[2020-04-25] MEDS ORDERED: CARVEDILOL 12.5MG TABLET PO SCH (10:00)
[2020-04-25 12:00] VITALS: BP 115/68
[2020-04-25 16:00] VITALS: BP 106/73
[2020-04-25] MEDS: OLANZAPINE 10MG TABLET PO SCH (17:45)
[2020-04-25 20:00] VITALS: BP 103/68
[2020-04-25] MEDS ORDERED: LIDOCAINE HCL 2%/EPINEPHRINE/PF 10 ML VIAL INFIL NR (20:00)
[2020-04-25] MEDS ORDERED: ETHYL CHLORIDE CAN TOP NR (21:15)
[2020-04-25] MEDS: ATORVASTATIN CALCIUM 40MG TABLET PO SCH (22:30)
[2020-04-26] VITALS: BP 90/58
[2020-04-26 04:00] VITALS: BP 105/68
[2020-04-26] MEDS: HYDROMORPHONE HCL/PF 2MG/ML CPJ IV PRN ×3 (04:02→12:19)
[2020-04-26] MEDS: FUROSEMIDE 40MG TABLET PO SCH ×2 (06:23→17:15)
[2020-04-26] MEDS: HYDROCODONE/ACETAMINOPHEN 5/325MG TABLET PO PRN ×2 (06:29→14:49)
[2020-04-26 08:00] VITALS: BP 106/75
[2020-04-26] MEDS: LOSARTAN POTASSIUM 50 MG TABLET PO SCH (08:19)
[2020-04-26 12:00] VITALS: BP 105/59
[2020-04-26 16:00] VITALS: BP 118/84
[2020-04-26] MEDS ORDERED: MORPHINE SULFATE 2 MG/ML CPJ (NOT FOR IM USE) IV PRN (16:15)
[2020-04-26] MEDS: OLANZAPINE 10MG TABLET PO SCH (17:00)
[2020-04-26 17:23] VITALS: BP 118/84
[2020-04-26] MEDS ORDERED: CARVEDILOL 3.125 MG TABLET PO SCH (21:00)
== END 2020-04-26 18:25 | disposition home or self-care (01) | DRG 194 ==
LOC: ER 12:46 → ENRESERV 20:11 → 5WST 20:47
PROVIDERS: ADMIT Internal Medicine; ATTEND Internal Medicine
DX: I11.0 Hypertensive heart disease with heart failure (principal); I50.23 Acute on chronic systolic (congestive) heart failure; M79.5 Residual foreign body in soft tissue; R94.31 Abnormal electrocardiogram [ECG] [EKG]; F10.10 Alcohol abuse, uncomplicated; R00.0 Tachycardia, unspecified; D72.821 Monocytosis (symptomatic); F31.9 Bipolar disorder, unspecified; L73.2 Hidradenitis suppurativa; L85.9 Epidermal thickening, unspecified; D72.810 Lymphocytopenia; Z79.899 Other long term (current) drug therapy; F41.9 Anxiety disorder, unspecified; M10.9 Gout, unspecified; W45.8XXA Other foreign body or object entering through skin, initial encounter; S90.454A Superficial foreign body, right lesser toe(s), initial encounter; X58.XXXA Exposure to other specified factors, initial encounter; Y93.89 Activity, other specified; Y92.89 Other specified places as the place of occurrence of the external cause; Y99.8 Other external cause status; R65.11 Systemic inflammatory response syndrome (SIRS) of non-infectious origin with acute organ dysfunction
CPT/HCPCS: 36415; 71045; 73630; 80048; 80053; 83880; 84484; 84550; 85025; 93005; 96374; 97162; 97165; 99285; J1170; J1940; J2270; J3490

== ENCOUNTER 2020-10-13 14:13 | Inpatient (IN) | payer MEDICAID ==
[~2020-10-13] VITALS: Ht 172.7 cm; Wt 104.3 kg
[~2020-10-13 14:13] MED LIST changes: -ACETAMINOPHEN COD PO
[2020-10-13] MEDS ORDERED: FUROSEMIDE 40MG/4ML VIAL IV ONE (14:45)
[2020-10-13] MEDS ORDERED: MORPHINE SULFATE 2 MG/ML CPJ (NOT FOR IM USE) IV ONE (15:00)
[2020-10-13 15:06] LABS: BASOPHILS % 0.7 % (0.0-2.0); EOSINOPHILS % 0.1 % (0.0-5.0); HEMATOCRIT. 48.2 % (42.0-52.0); HEMOGLOBIN. 16.3 g/dL (14.0-18.0); LYMPHOCYTES % 12.3 % (20.0-50.0); MEAN CORPUSCULAR HEMOGLOBIN 28.8 pg (28.0-32.0); MEAN CORPUSCULAR VOLUME 85.5 fL (80.0-94.0); MEAN PLATELET VOLUME 10.4 fl (7.4-10.4); MONOCYTES % 8.3 % (2.0-8.0); NEUTROPHILS % 78.6 % (40.0-76.0); PLATELET 150 x1000/uL (130-400); RED BLOOD CELL COUNT 5.64 mill/uL (4.7-6.1); RED CELL DISTRIBUTION WIDTH 14.1 % (11.6-14.6)
[2020-10-13] MEDS ORDERED: ASPIRIN 325MG TABLET PO ONE (15:15)
[2020-10-13 15:25] LABS: CHLORIDE 110 mEq/L (98-107)
[2020-10-13] MEDS ORDERED: NITROGLYCERIN OINT 1GM/INCH UDPKT TD ONE (16:15)
[2020-10-13] MEDS ORDERED: CARVEDILOL 6.25 MG TABLET PO ONE (16:15)
[2020-10-14] MEDS: FUROSEMIDE 100MG/10ML VIAL IVP SCH ×2 (08:00→21:01)
[2020-10-14] MEDS: CARVEDILOL 3.125 MG TABLET PO SCH ×2 (09:00→20:08)
[2020-10-14] MEDS: POTASSIUM CHLORIDE 20MEQ TABLET SR PO SCH ×2 (09:00→17:50)
[2020-10-14] MEDS: ASPIRIN 81MG EC TABLET PO SCH (09:00)
[2020-10-14] MEDS ORDERED: CLONIDINE 0.1MG TABLET PO PRN (15:30)
[2020-10-14] MEDS ORDERED: ENOXAPARIN 40MG/0.4ML SYR SUBCUT SCH (15:30)
[2020-10-14] MEDS ORDERED: ONDANSETRON HCL 4MG/2ML INJ IV PRN (15:30)
[2020-10-14 17:22] VITALS: BP 152/78
[2020-10-14 20:00] VITALS: BP_SYST 124; BP_SYST 97; BP_DIAS 49; BP_DIAS 91
[2020-10-14] MEDS: ATORVASTATIN CALCIUM 10MG TABLET PO SCH (20:08)
[2020-10-14] MEDS: ENOXAPARIN 30MG/0.3ML SYR SUBCUT SCH (20:08)
[2020-10-14] MEDS: HYDROCODONE/ACETAMINOPHEN 5/325MG TABLET PO PRN (20:08)
[2020-10-14] MEDS: NITROGLYCERIN OINT 1GM/INCH UDPKT TD SCH (21:56)
[2020-10-15] VITALS: BP 119/76
[2020-10-15] MEDS: HYDROCODONE/ACETAMINOPHEN 5/325MG TABLET PO PRN ×3 (01:26→23:09)
[2020-10-15 04:00] VITALS: BP 127/80
[2020-10-15] MEDS: NITROGLYCERIN OINT 1GM/INCH UDPKT TD SCH ×4 (06:00→22:49)
[2020-10-15] MEDS: ACETAMINOPHEN 325MG TABLET PO PRN (06:10)
[2020-10-15 06:25] LABS: HEMATOCRIT. 54.6 % (42.0-52.0); HEMOGLOBIN. 18.5 g/dL (14.0-18.0); MEAN CORPUSCULAR HEMOGLOBIN 29.1 pg (28.0-32.0); MEAN CORPUSCULAR VOLUME 86.2 fL (80.0-94.0); RED BLOOD CELL COUNT 6.34 mill/uL (4.7-6.1); RED CELL DISTRIBUTION WIDTH 14.4 % (11.6-14.6)
[2020-10-15 06:37] LABS: CHLORIDE 103 mEq/L (98-107)
[2020-10-15 08:00] VITALS: BP 112/87
[2020-10-15 08:49] LABS: PLATELET 165 x1000/uL (130-400)
[2020-10-15] MEDS: FUROSEMIDE 100MG/10ML VIAL IVP SCH ×2 (10:05→22:48)
[2020-10-15] MEDS: ASPIRIN 81MG EC TABLET PO SCH (10:06)
[2020-10-15] MEDS: ENOXAPARIN 30MG/0.3ML SYR SUBCUT SCH ×2 (10:06→22:49)
[2020-10-15] MEDS: OLANZAPINE 10MG TABLET PO SCH (10:07)
[2020-10-15] MEDS: POTASSIUM CHLORIDE 20MEQ TABLET SR PO SCH ×2 (10:07→18:31)
[2020-10-15] MEDS: CARVEDILOL 3.125 MG TABLET PO SCH ×3 (10:08→22:50)
[2020-10-15 12:00] VITALS: BP 117/81
[2020-10-15] MEDS: ALPRAZOLAM 0.5 MG TABLET PO SCH (12:58)
[2020-10-15] MEDS ORDERED: POTASSIUM CHLORIDE 20MEQ TABLET SR PO NR (13:15)
[2020-10-15] MEDS: LOSARTAN POTASSIUM 25 MG TABLET PO SCH (13:51)
[2020-10-15 16:00] VITALS: BP 137/60
[2020-10-15] MEDS: CEFTRIAXONE 1,000 MG in DEXTROSE 5% WATER 50 ML IV SCH (18:32)
[2020-10-15 20:00] VITALS: BP 96/61
[2020-10-15] MEDS: ATORVASTATIN CALCIUM 10MG TABLET PO SCH (22:50)
[2020-10-16] VITALS (8 sets, daily range): BP systolic 108–158; BP diastolic 61–95
[2020-10-16] MEDS: ACETAMINOPHEN 325MG TABLET PO PRN (04:04)
[2020-10-16] MEDS: NITROGLYCERIN OINT 1GM/INCH UDPKT TD SCH ×3 (05:54→22:42)
[2020-10-16 07:29] LABS: BASOPHILS % 0.7 % (0.0-2.0); EOSINOPHILS % 0.9 % (0.0-5.0); HEMATOCRIT. 53.5 % (42.0-52.0); HEMOGLOBIN. 18.2 g/dL (14.0-18.0); LYMPHOCYTES % 19.4 % (20.0-50.0); MEAN CORPUSCULAR HEMOGLOBIN 29.5 pg (28.0-32.0); MEAN CORPUSCULAR VOLUME 86.4 fL (80.0-94.0); MONOCYTES % 9.3 % (2.0-8.0); NEUTROPHILS % 69.7 % (40.0-76.0); RED BLOOD CELL COUNT 6.19 mill/uL (4.7-6.1); RED CELL DISTRIBUTION WIDTH 14.3 % (11.6-14.6)
[2020-10-16 07:36] LABS: CHLORIDE 103 mEq/L (98-107)
[2020-10-16] MEDS: CARVEDILOL 3.125 MG TABLET PO SCH ×2 (08:34→21:00)
[2020-10-16] MEDS: OLANZAPINE 10MG TABLET PO SCH (08:34)
[2020-10-16] MEDS: LOSARTAN POTASSIUM 25 MG TABLET PO SCH (08:34)
[2020-10-16] MEDS: ASPIRIN 81MG EC TABLET PO SCH (08:34)
[2020-10-16] MEDS: POTASSIUM CHLORIDE 20MEQ TABLET SR PO SCH ×2 (08:35→17:10)
[2020-10-16] MEDS: FUROSEMIDE 100MG/10ML VIAL IVP SCH ×2 (08:35→21:41)
[2020-10-16] MEDS: HYDROCODONE/ACETAMINOPHEN 5/325MG TABLET PO PRN ×3 (08:38→23:04)
[2020-10-16] MEDS: ENOXAPARIN 30MG/0.3ML SYR SUBCUT SCH ×2 (08:48→21:41)
[2020-10-16] MEDS: ALPRAZOLAM 0.5 MG TABLET PO SCH (12:41)
[2020-10-16 14:42] LABS: PLATELET 166 x1000/uL (130-400)
[2020-10-16 17:36] LABS: *AMPHETAMINES SCREEN URINE NEGATIVE (NEGATIVE); METHADONE URINE SCREEN NEGATIVE (NEGATIVE)
[2020-10-16 17:37] LABS: *BARBITURATES SCREEN URINE NEGATIVE (NEGATIVE); *BENZODIAZEPINES SCREEN URINE PRESUMTIVE POSITIVE (NEGATIVE); *COCAINE SCREEN URINE PRESUMTIVE POSITIVE (NEGATIVE); CANNABINOID URINE SCREEN PRESUMTIVE POSITIVE (NEGATIVE); OPIATES URINE SCREEN PRESUMTIVE POSITIVE (NEGATIVE); PHENCYCLIDINE URINE SCREEN NEGATIVE (NEGATIVE)
[2020-10-16] MEDS: CEFTRIAXONE 1,000 MG in DEXTROSE 5% WATER 50 ML IV SCH (18:36)
[2020-10-16] MEDS: ATORVASTATIN CALCIUM 10MG TABLET PO SCH (21:41)
[2020-10-17] MEDS: NITROGLYCERIN OINT 1GM/INCH UDPKT TD SCH (06:56)
[2020-10-17] MEDS: HYDROCODONE/ACETAMINOPHEN 5/325MG TABLET PO PRN ×2 (06:56→11:36)
[2020-10-17 08:00] VITALS: BP 128/85
[2020-10-17] MEDS: POTASSIUM CHLORIDE 20MEQ TABLET SR PO SCH (09:05)
[2020-10-17] MEDS: CARVEDILOL 3.125 MG TABLET PO SCH (09:05)
[2020-10-17] MEDS: LOSARTAN POTASSIUM 25 MG TABLET PO SCH (09:06)
[2020-10-17] MEDS: OLANZAPINE 10MG TABLET PO SCH (09:06)
[2020-10-17] MEDS: ASPIRIN 81MG EC TABLET PO SCH (09:06)
[2020-10-17] MEDS: ENOXAPARIN 30MG/0.3ML SYR SUBCUT SCH (09:07)
[2020-10-17] MEDS: FUROSEMIDE 100MG/10ML VIAL IVP SCH (09:07)
[2020-10-17] MEDS: ALPRAZOLAM 0.5 MG TABLET PO SCH (11:35)
[2020-10-17 13:45] LABS: BASOPHILS % 0.7 % (0.0-2.0); EOSINOPHILS % 0.8 % (0.0-5.0); HEMATOCRIT. 52.5 % (42.0-52.0); HEMOGLOBIN. 17.9 g/dL (14.0-18.0); LYMPHOCYTES % 17.4 % (20.0-50.0); MEAN CORPUSCULAR HEMOGLOBIN 28.6 pg (28.0-32.0); MEAN CORPUSCULAR VOLUME 84.1 fL (80.0-94.0); MEAN PLATELET VOLUME 10.7 fl (7.4-10.4); MONOCYTES % 10.2 % (2.0-8.0); NEUTROPHILS % 70.9 % (40.0-76.0); PLATELET 159 x1000/uL (130-400); RED BLOOD CELL COUNT 6.25 mill/uL (4.7-6.1)
[2020-10-17 14:00] VITALS: BP 110/84
[2020-10-17 14:28] LABS: CHLORIDE 100 mEq/L (98-107)
[2020-10-17 15:44] VITALS: BP 128/85
== END 2020-10-17 15:56 | disposition home or self-care (01) | DRG 194 ==
LOC: ER 14:13 → MICUSO 17:22 → 7EST 10-14 12:26 → 6EST 10-15 16:54
PROVIDERS: ADMIT Internal Medicine; ATTEND Internal Medicine
DX: I11.0 Hypertensive heart disease with heart failure (principal); D57.1 Sickle-cell disease without crisis; E78.5 Hyperlipidemia, unspecified; I42.0 Dilated cardiomyopathy; Z20.822 Contact with and (suspected) exposure to COVID-19; E66.01 Morbid (severe) obesity due to excess calories; F14.10 Cocaine abuse, uncomplicated; G47.33 Obstructive sleep apnea (adult) (pediatric); D72.829 Elevated white blood cell count, unspecified; I27.20 Pulmonary hypertension, unspecified; I50.23 Acute on chronic systolic (congestive) heart failure; Z79.82 Long term (current) use of aspirin; Z79.899 Other long term (current) drug therapy; Z87.891 Personal history of nicotine dependence; Z68.35 Body mass index [BMI] 35.0-35.9, adult; Z79.84 Long term (current) use of oral hypoglycemic drugs; F19.10 Other psychoactive substance abuse, uncomplicated; Z87.898 Personal history of other specified conditions; R65.10 Systemic inflammatory response syndrome (SIRS) of non-infectious origin without acute organ dysfunction
CPT/HCPCS: 36415; 71045; 80048; 80053; 80305; 83735; 83880; 84484; 85025; 93005; 93306; 99291; J0696; J1650; J1940; J2270; J7040; J7060; U0003